=== PATIENT | male | born 1950 | race Caucasian/White ===

== ENCOUNTER 2016-08-04 09:49 | Emergency (ER) | payer BC, OTHER ==
[~2016-08-04] VITALS: Ht 182.9 cm; Wt 95.5 kg
[~2016-08-04 09:49] MED LIST: AMIO200T PO; AMIT25TA9 PO; APIX5TAB PO; CARD180C5 PO; CIAL5TAB PO; DICL75TA PO; FOLI1TAB4 PO; METH2.5T PO; REST0.05 EACH EYE; ROSU10 PO; ZOLP10TA3 PO
[2016-08-04 09:51] VITALS: BP 138/89; PULSE 110; RESP 20; TEMP 97.5; O2SAT 98
[2016-08-04] MEDS ORDERED: SODIUM CHLORID 0.9% 500 ML INJ 500 ML IV ONE (10:30)
[2016-08-04] MEDS ORDERED: SODIUM CHLORIDE 0.9% FLUSH 10 ML FLUSH IVF PRN (10:30)
[2016-08-04] MEDS ORDERED: METOCLOPRAMIDE HCL 10 MG/2 ML VIAL IV PUSH ONE (10:30)
[2016-08-04 10:37] VITALS: BP 139/78; PULSE 82; RESP 16; O2SAT 99
[2016-08-04 10:48] LABS: AUTOMATED NEUTROPHIL # 3.8 TH/MM3 (1.8-7.7); BASOPHIL % 0.4 % (0.0-2.0); EOSINOPHIL # 0.1 TH/MM3 (0-0.4); EOSINOPHIL % 1.9 % (0.0-4.0); HEMATOCRIT 42.6 % (39.0-51.0); HEMO FLAGS DIFF FINAL; LYMPH % 30.5 % (9.0-44.0); MEAN CELL VOLUME 86.8 FL (80.0-100.0); MEAN CORPUSCULAR HEMOGLOBIN 30.4 PG (27.0-34.0); MONO % 8.3 % (0.0-8.0); NEUT % 58.9 % (16.0-70.0); PLATELET COUNT 273 TH/MM3 (150-450); RED BLOOD COUNT 4.91 MIL/MM3 (4.50-5.90); RED CELL DISTRIBUTION WIDTH 13.8 % (11.6-17.2); WHITE BLOOD COUNT 6.4 TH/MM3 (4.0-11.0)
[2016-08-04 10:59] LABS: APTT (PATIENT) 33.2 SEC (24.3-30.1); PROTHROMBIN TIME - PATIENT 11.2 SEC (9.8-11.6)
--- NOTE | 2016-08-04 10:59 | RADRPT ---
EXAM DATE/TIME: 08/04/2016 10:41 [place] COMPARISON: No previous studies available for comparison. INDICATIONS : Shortness of breath and palpitations. MEDICAL HISTORY : A-fib. SURGICAL HISTORY : None. ENCOUNTER: Initial ACUITY: 1 day PAIN SCORE: 0/10 LOCATION: Bilateral chest FINDINGS: A single view of the chest demonstrates the lungs to be symmetrically aerated without evidence of mas s, infiltrate or effusion. The cardiomediastinal contours are unremarkable. Osseous structures are intact. CONCLUSION: No acute disease. Mick Stanton MD on August 04, 2016 at 10:57 Board Certified Radiologist. This report was verified electronically.
[2016-08-04 11:05] LABS: ANION GAP 7 MEQ/L (5-15); AST (GOT) 20 U/L (15-37); BICARBONATE 26.4 MEQ/L (21.0-32.0); BLOOD UREA NITROGEN 19 MG/DL (7-18); CHLORIDE 104 MEQ/L (98-107); GLOMERULAR FILTRATION RATE 56 ML/MIN (>89); MAGNESIUM 2.4 MG/DL (1.5-2.5); POTASSIUM 4.1 MEQ/L (3.5-5.1); SODIUM (NA) 137 MEQ/L (136-145)
[2016-08-04 11:10] LABS: ALKALINE PHOSPHATASE 65 U/L (45-117); ALT (GPT) 34 U/L (12-78); CREATINE KINASE 110 U/L (39-308); TOTAL BILIRUBIN ADULT 0.5 MG/DL (0.2-1.0)
[2016-08-04 11:22] LABS: CKMB 0.8 NG/ML (0.5-3.6)
[2016-08-04 13:22] VITALS: BP 127/71; PULSE 124; RESP 18; O2SAT 98
--- NOTE | 2016-08-04 13:47 | PD ---
HPI Chief Complaint: Cardiac Complaint Time Seen by Provider: 10:19 Travel History International Travel<30 days: No Contact w/Intl Traveler<30days: No Traveled to known affect area: No History of Present Illness HPI Patient is a 65-year-old male who presents to emergency with A. fib, htn, hyperlipidemia on cardizem and amiodarone and eliquis. Patient reports that he has history of A. fib, reports that he had at ablation by Dr. Perera in August and then had a repeat one in January. Patient reports that 10 days ago, he began to have rapid heart rate. Patient was restarted on his amiodarone 5-6 days ago and reports that he was placed on a Holter monitor by Dr. Perera. He reports that he was found to be in afib rvr. Dr. 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 Patient reports that he has been taking his medications as prescribed, reports that he has been intermittent episodes where his heart rate will be in the 140s. Patient currently with no shortness of breath or chest pain at this time. PFSH Past Medical History Hx Anticoagulant Therapy: Yes Arthritis: No Autoimmune Disease: No Heart Rhythm Problems: No Cancer: No Cardiovascular Problems: Yes High Cholesterol: No Chemotherapy: No Chest Pain: No Congestive Heart Failure: No Cerebrovascular Accident: No Diabetes: No Diminished Hearing: No Endocrine: No GERD: No Genitourinary: No Hiatal Hernia: No Hypertension: Yes Immune Disorder: No Kidney Stones: No Musculoskeletal: Yes (Polymyalgia rheumatica) Neurologic: No Psychiatric: No Reproductive: No Respiratory: No Migraines: No Radiation Therapy: No Renal Failure: No Seizures: No Thyroid Disease: No Ulcer: No Tetanus Vaccination: Unknown Influenza Vaccination: Yes Past Surgical History Thoracic Surgery: No Social History Alcohol Use: No Tobacco Use: No Substance Use: No Allergies-Medications (Allergen,Severity, Reaction): Coded Allergies: Doxazosin (Verified Adverse Reaction, Unknown, Arrhythmias, 02/29/16) Doxycycline (Verified Adverse Reaction, Unknown, PHOTOSENSITIVITY, ) Temazepam (Verified Adverse Reaction, Unknown, Arrhythmias, 02/29/16) Reported Meds & Prescriptions Reported Meds & Active Scripts Active Amiodarone (Amiodarone HCl) 200 Mg Tab 200 Mg PO DAILY Reported Zolpidem (Zolpidem Tartrate) 10 Mg Tab 10 Mg PO HS PRN Methotrexate 2.5 Mg Tab 2.5 Mg PO Q7D Folate (Folic Acid) 1 Mg Tab 1 Mg PO DAILY Eliquis (Apixaban) 5 Mg Tab 5 Mg PO BID Diclofenac Sodium DR (Diclofenac Sodium) 75 Mg Tabdr 75 Mg PO BID Crestor (Rosuvastatin Calcium) 10 Mg Tab 10 Mg PO DAILY Cialis (Tadalafil) 5 Mg Tab 5 Mg PO DAILY Do not exceed 1 dose/day. Cardizem CD 24 HR (Diltiazem CD 24 HR) 180 Mg Caper 180 Mg PO DAILY Amitriptyline (Amitriptyline HCl) 25 Mg Tab 25 Mg PO HS Review of Systems General / Constitutional: No: Fever Eyes: No: Visual changes HENT: No: Headaches Cardiovascular: Positive: Irregular Rhythm, No: Chest Pain or Discomfort Respiratory: No: Shortness of Breath Gastrointestinal: No: Abdominal Pain Genitourinary: No: Dysuria Musculoskeletal: No: Pain Skin: No Rash Neurologic: No: Weakness Psychiatric: No: Depression Endocrine: No: Polydipsia Hematologic/Lymphatic: No: Easy Bruising Physical Exam Narrative GENERAL: No acute distress, nontoxic SKIN: Focused skin assessment warm/dry. HEAD: Atraumatic. Normocephalic. EYES: Pupils equal and round. No scleral icterus. No injection or drainage. ENT: No nasal bleeding or discharge. Mucous membranes pink and moist. NECK: Trachea midline. No JVD. CARDIOVASCULAR: Irregular rate and rhythm. No murmur appreciated. RESPIRATORY: No accessory muscle use. Clear to auscultation. Breath sounds equal bilaterally. GASTROINTESTINAL: Abdomen soft, non-tender, nondistended. Hepatic and splenic margins not palpable. MUSCULOSKELETAL: No obvious deformities. No clubbing. No cyanosis. No edema. NEUROLOGICAL: Awake and alert. No obvious cranial nerve deficits. Motor grossly within normal limits. Normal speech. PSYCHIATRIC: Appropriate mood and affect; insight and judgment normal. Data Data Last Documented VS Vital Signs Date Time Temp Pulse Resp B/P Pulse Ox O2 Delivery O2 Flow Rate FiO2 08/04/16 13:22 124 18 127/71 98 Room Air 08/04/16 09:51 97.5 Orders Electrocardiogram (08/04/16 ) B-Type Natriuretic Peptide (08/04/16 10:27) Ckmb (Isoenzyme) Profile (08/04/16 10:27) Complete Blood Count With Diff (08/04/16 10:27) Comprehensive Metabolic Panel (08/04/16 10:27) Magnesium (Mg) (08/04/16 10:27) Prothrombin Time / Inr (Pt) (08/04/16 10:27) Act Partial Throm Time (Ptt) (08/04/16 10:27) Troponin I (08/04/16 10:27) Chest, Single Ap (08/04/16 10:27) Ecg Monitoring (08/04/16 10:27) Iv Access Insert/Monitor (08/04/16 10:27) Oximetry (08/04/16 10:27) Sodium Chloride 0.9% Flush (Ns Flush) (08/04/16 10:30) Sodium Chlorid 0.9% 500 Ml Inj (Ns 500 M (08/04/16 10:30) Metoclopramide Inj (Reglan Inj) (08/04/16 10:30) CKMB (08/04/16 10:20) CKMB% (08/04/16 10:20) Consult Cardiology (08/04/16 ) (Hub Use Only)Inp Phy Cons/Ref (08/04/16 ) Ckmb (Isoenzyme) Profile (08/04/16 15:16) Troponin I (08/04/16 15:16) Labs Laboratory Tests Test 08/04/16 08/04/16 10:20 15:20 White Blood Count 6.4 TH/MM3 Red Blood Count 4.91 MIL/MM3 Hemoglobin 14.9 GM/DL Hematocrit 42.6 % Mean Corpuscular Volume 86.8 FL Mean Corpuscular Hemoglobin 30.4 PG Mean Corpuscular Hemoglobin 35.0 % Concent Red Cell Distribution Width 13.8 % Platelet Count 273 TH/MM3 Mean Platelet Volume 7.6 FL Neutrophils (%) (Auto) 58.9 % Lymphocytes (%) (Auto) 30.5 % Monocytes (%) (Auto) 8.3 % Eosinophils (%) (Auto) 1.9 % Basophils (%) (Auto) 0.4 % Neutrophils # (Auto) 3.8 TH/MM3 Lymphocytes # (Auto) 2.0 TH/MM3 Monocytes # (Auto) 0.5 TH/MM3 Eosinophils # (Auto) 0.1 TH/MM3 Basophils # (Auto) 0.0 TH/MM3 CBC Comment DIFF FINAL Differential Comment Prothrombin Time 11.2 SEC Prothromb Time International 1.0 RATIO Ratio Activated Partial 33.2 SEC Thromboplast Time Sodium Level 137 MEQ/L Potassium Level 4.1 MEQ/L Chloride Level 104 MEQ/L Carbon Dioxide Level 26.4 MEQ/L Anion Gap 7 MEQ/L Blood Urea Nitrogen 19 MG/DL Creatinine 1.30 MG/DL Estimat Glomerular Filtration 56 ML/MIN Rate Random Glucose 97 MG/DL Calcium Level 8.6 MG/DL Magnesium Level 2.4 MG/DL Total Bilirubin 0.5 MG/DL Aspartate Amino Transf 20 U/L (AST/SGOT) Alanine Aminotransferase 34 U/L (ALT/SGPT) Alkaline Phosphatase 65 U/L Total Creatine Kinase 110 U/L 96 U/L Creatine Kinase MB 0.8 NG/ML Troponin I LESS THAN 0.02 LESS THAN 0.02 NG/ML NG/ML Total Protein 7.3 GM/DL Albumin 3.9 GM/DL MDM Medical Decision Making Medical Screen Exam Complete: Yes Emergency Medical Condition: Yes Interpretation(s) EKG at 1018: Afib at 83bpm, qt/qtc: 389/429 Vital Signs Date Time Temp Pulse Resp B/P Pulse Ox O2 Delivery O2 Flow Rate FiO2 08/04/16 13:22 124 18 127/71 98 Room Air 08/04/16 10:37 16 99 Room Air 08/04/16 10:37 82 16 139/78 99 Room Air 08/04/16 09:51 97.5 110 20 138/89 98 Room Air Differential Diagnosis afib, electrolyte abnormality, acs Narrative Course Patient is a 65 year old male who presents to ER with complaint of afib. Patient reports history of afib and has had afib ablation x 2 in the past. Patient reports that he has noticed that his heart rate ranges from 80-140's. Patient was told to come to the ER by Dr. Perera's RN if he was symptomatic. Patient reports that he has been symptomatic for the past 10 days, patient here for treatment for his A. fib. Patient currently is rate controlled with a heart rate of 83. Labs as well as x -ray chest ordered. Laboratory Tests Test 08/04/16 10:20 White Blood Count 6.4 TH/MM3 (4.0-11.0) Red Blood Count 4.91 MIL/MM3 (4.50-5.90) Hemoglobin 14.9 GM/DL (13.0-17.0) Hematocrit 42.6 % (39.0-51.0) Mean Corpuscular Volume 86.8 FL (80.0-100.0) Mean Corpuscular Hemoglobin 30.4 PG (27.0-34.0) Mean Corpuscular Hemoglobin 35.0 % Concent (32.0-36.0) Red Cell Distribution Width 13.8 % (11.6-17.2) Platelet Count 273 TH/MM3 (150-450) Mean Platelet Volume 7.6 FL (7.0-11.0) Neutrophils (%) (Auto) 58.9 % (16.0-70.0) Lymphocytes (%) (Auto) 30.5 % (9.0-44.0) Monocytes (%) (Auto) 8.3 % (0.0-8.0) Eosinophils (%) (Auto) 1.9 % (0.0-4.0) Basophils (%) (Auto) 0.4 % (0.0-2.0) Neutrophils # (Auto) 3.8 TH/MM3 (1.8-7.7) Lymphocytes # (Auto) 2.0 TH/MM3 (1.0-4.8) Monocytes # (Auto) 0.5 TH/MM3 (0-0.9) Eosinophils # (Auto) 0.1 TH/MM3 (0-0.4) Basophils # (Auto) 0.0 TH/MM3 (0-0.2) CBC Comment DIFF FINAL Differential Comment Prothrombin Time 11.2 SEC (9.8-11.6) Prothromb Time International 1.0 RATIO Ratio Activated Partial 33.2 SEC Thromboplast Time (24.3-30.1) Sodium Level 137 MEQ/L (136-145) Potassium Level 4.1 MEQ/L (3.5-5.1) Chloride Level 104 MEQ/L (98-107) Carbon Dioxide Level 26.4 MEQ/L (21.0-32.0) Anion Gap 7 MEQ/L (5-15) Blood Urea Nitrogen 19 MG/DL (7-18) Creatinine 1.30 MG/DL (0.60-1.30) Estimat Glomerular Filtration 56 ML/MIN (>89) Rate Random Glucose 97 MG/DL (74-106) Calcium Level 8.6 MG/DL (8.5-10.1) Magnesium Level 2.4 MG/DL (1.5-2.5) Total Bilirubin 0.5 MG/DL (0.2-1.0) Aspartate Amino Transf 20 U/L (15-37) (AST/SGOT) Alanine Aminotransferase 34 U/L (12-78) (ALT/SGPT) Alkaline Phosphatase 65 U/L (45-117) Total Creatine Kinase 110 U/L (39-308) Creatine Kinase MB 0.8 NG/ML (0.5-3.6) Troponin I LESS THAN 0.02 NG/ML (0.02-0.05) Total Protein 7.3 GM/DL (6.4-8.2) Albumin 3.9 GM/DL (3.4-5.0) Last Impressions Chest X-Ray 08/04/16 1027 Signed Impressions: Service Date/Time: Thursday, August 04, 2016 10:41 - CONCLUSION: No acute disease. Mick Stanton MD Call made to Dr. Perera who will see patient in consult Dr. Perera saw patient in consult. Patient was cardioverted under conscious sedation. Patient had successful cardioversion after procedure, patient will follow-up with Dr. Perera in the office, he will return to ER as needed Patient eating and drinking and back to baseline mental status. Patient will be discharged to home, he will follow up with Dr. Perera and will return to ER as needed Diagnosis Primary Impression: Atrial fibrillation Qualified Code: I48.1 - Persistent atrial fibrillation Patient Instructions: General Instructions, Moderate Sedation (ED) Additional Instructions: Please follow up with Dr. Perera in the office Return to ER as needed Please take your medications as prescribed Sabrina Lau DO August 04, 2016 13:47
--- NOTE | 2016-08-04 16:33 | MB ---
cc: NALLELY AVALOS M.D. DATE OF CONSULTATION: 08/04/2016. REASON FOR CONSULTATION: Electrophysiology consultation. HISTORY OF PRESENT ILLNESS: Mr. Ayoub is a 65-year-old gentleman with atrial fibrillation, previous ablation last in December of 2015, reported tachyarrhythmia this week. He was initiated on amiodarone. Heart rate increased. He decided to come to the emergency room. He is in atrial fibrillation and possible left atrial tachyarrhythmia. Heart rate in the 120s. He is on anticoagulation. I was consulted for further evaluation and management. The chart was reviewed. The patient was evaluated. ALLERGIES: 1. DOXAZOSIN. 2. DOXYCYCLINE. 3. TEMAZEPAM. SOCIAL HISTORY: Negative for smoking and drinking. FAMILY HISTORY: Noncontributory to his current medical condition. MEDICATIONS: He is on: 1. Amiodarone 200 milligrams a day. 2. Ambien 10 milligrams at bedtime. 3. Methotrexate 2.5 milligrams every seven days. 4. Folic acid. 5. Eliquis 5 milligrams twice a day. 6. Crestor 10 milligrams a day. 7. Cialis PRN. 8. Cardizem CD 240 milligrams a day. 9. Amitriptyline. REVIEW OF SYSTEMS: He refers no chest pain. No chest discomfort. He refers palpitations and shortness of breath. No fever. PHYSICAL EXAMINATION: GENERAL: Alert, fully oriented. VITAL SIGNS: His blood pressure is 127/71, pulse of 124, respiratory rate 18. LUNGS: Ventilated. CARDIOVASCULAR: S1 and S2. Irregular tachycardic. ABDOMEN: Abdomen soft, no mass. EXTREMITIES: No edema. EKGS: Electrocardiogram shows atrial fibrillation and atrial tachycardia, diffuse S-T changes. LABS: Hemoglobin 14.9, white blood cells 6.4. Potassium 4.1. Troponin less than 0.02. Creatinine 1.30. ASSESSMENT AND RECOMMENDATIONS: Mr. Ayoub has atrial fibrillation. He was always on anticoagulation. He is on Eliquis. He is very symptomatic. At this point, I will proceed with cardioversion and keep him on the same medications. If successful, he will be discharged home and to follow in two or three weeks in my office. The case was extensively discussed with him and his . The risks, the nature and the benefits of the procedure were clearly stated to him. The risks include pneumothorax, cardiac perforation, stroke and even . He understood and agreed to proceed. The procedure will be performed during hospitalization. MD KRISTIN Castro/AMAURI /4:21 PM /4:25 PM
[2016-08-04 16:34] LABS: CREATINE KINASE 96 U/L (39-308)
--- NOTE | 2016-08-04 16:43 | MA ---
cc: NALLELY PERERA M.D. DATE: 08/04/16 PROCEDURE Cardioversion. Mr. Ayoub is a 65-year-old gentleman with atrial fibrillation, previous ablation and atrial tachycardia, very symptomatic, on anticoagulation who will undergo cardioversion. The risks, the nature and the benefit of the procedure are clearly stated to him. Risks include cardiac arrest, need for a pacing support, need for endotracheal intubation and even . He understood and agreed to proceed. PROCEDURE IN DETAIL After written informed consent was obtained, the patient was evaluated by anesthesiologist. Once sedation was verified, the pads were placed. Subsequently a 300 sync biphasic joule was delivered that converted the patient into sinus rhythm. No incident reported. Patient fully recuperated from anesthesia. CONCLUSION Successful cardioversion, RECOMMENDATIONS The patient will be observed, can be discharged home later today. Follow up in 3-4 weeks in my office. Nallely Perera MD / /4:24 PM /4:34 PM
[2016-08-04 17:20] VITALS: BP 124/76
--- NOTE | 2016-08-04 21:47 | EKG ---
Date Performed: 08/04/2016 Time Performed: 16:14:34 PTAGE: 65 years EKG: Sinus rhythm NONSPECIFIC ST & T-WAVE ABNORMALITY BORDERLINE ECG PREVIOUS TRACING : 08/04/2016 10.18 DOCTOR: Pepe Perera Interpretating Date/Time 08/04/2016 21:45:16
--- NOTE | 2016-08-04 21:54 | EKG ---
Date Performed: 08/04/2016 Time Performed: 10:18:21 PTAGE: 65 years EKG: Sinus rhythm MODERATE ST DEPRESSION ABNORMAL ECG NO PREVIOUS TRACING DOCTOR: Pepe Perera Interpretating Date/Time 08/04/2016 21:51:19
== END 2016-08-04 17:21 | disposition home or self-care (01) ==
LOC: NEPE 09:49
DX: I48.1 Persistent atrial fibrillation (principal); Z79.01 Long term (current) use of anticoagulants; E78.00 Pure hypercholesterolemia, unspecified
CPT/HCPCS: 71010; 80053; 82550; 82552; 83735; 84484; 85025; 85610; 85730; 92960; 93005; 96360; 99156; 99285; J7040

== ENCOUNTER 2016-11-27 11:55 | Day surgery (SDC) | payer BC ==
[~2016-11-27 11:55] MED LIST changes: -REST0.05 EACH EYE
[2016-11-27] MEDS ORDERED: PROPOFOL 200 MG/20 ML AMP IV ONE (12:28)
[2016-11-27] MEDS ORDERED: POVIDONE IODINE 5% (ANTISEPSIS KIT) 4 APPLICATIONS EACH NARE PRN (13:00)
[2016-11-27] MEDS ORDERED: INSULIN HUMAN REGULAR 1,000 UNITS/10 ML VIAL SQ PRN (13:00)
[2016-11-27] MEDS ORDERED: SODIUM CHLORID 0.9% 500 ML IV PRN (13:00)
[2016-11-27] MEDS ORDERED: LACTATED RINGER'S 1000 ML IV PRN (13:00)
[2016-11-27] MEDS ORDERED: CHLORHEXIDINE GLUCONATE 2 % 1 PACK (2 CLOTHS) TOPICAL PRN (13:00)
--- NOTE | 2016-11-28 08:36 | MA ---
cc: ANITA SERRATO MD, HANSCY M.D. DATE: 11/28/2016 PROCEDURE Cardioversion. INDICATION Mr. Ayoub is a 65-year-old gentleman with atrial fibrillation and atrial tachycardia, who is to undergo cardioversion. The risks, the nature and the benefit of the procedure were clearly stated to him. The risks include cardiac arrest, need for endotracheal intubation, stroke and even . He understood and agreed to proceed. DETAILS OF PROCEDURE After written informed consent was obtained, the patient was kept in the DOCU where he was evaluated by the anesthesiologist. Anterolateral pads were placed. Once sedation was verified, 200 synchronized biphasic joules were delivered and converted the patient into sinus rhythm. The patient fully recuperated from anesthesia. At that point procedure was complete. The patient is going to be discharged home. No incident report. CONCLUSION Successful cardioversion. COMMENT/RECOMMENDATION The patient is going to be discharged home. Cardizem discontinued. He will be follow as an outpatient. Pepe Perrea MD HS/BT /8:04 AM /8:25 AM
--- NOTE | 2016-11-28 16:50 | EKG ---
Date Performed: 11/27/2016 Time Performed: 12:58:52 PTAGE: 65 years EKG: Sinus tachycardia. Compared to PREVIOUS TRACING , the patient is now tachycardic Normal ECG except for rate PREVIOUS TRA CIN08/04/2016 16.14 DOCTOR: Bibi Wisdom Interpretating Date/Time 11/28/2016 16:49:45
== END 2016-11-27 14:00 | disposition home or self-care (01) ==
LOC: HDOC 11:55 → HDIC 11:56 → HDOC 14:00
PROVIDERS: ATTEND Internal Medicine Interventional Cardiology
DX: I48.91 Unspecified atrial fibrillation (principal); I10 Essential (primary) hypertension; I25.2 Old myocardial infarction; R00.2 Palpitations; M35.3 Polymyalgia rheumatica; Z79.01 Long term (current) use of anticoagulants; Z79.899 Other long term (current) drug therapy
CPT/HCPCS: 92960; 93005

== ENCOUNTER 2016-12-24 14:53 | Day surgery (SDC) | payer BC ==
[~2016-12-24] VITALS: Ht 182.9 cm; Wt 101.0 kg
[~2016-12-24 14:53] MED LIST changes: +DEXAMETHASONE SOD PHOS 4 MG/ML VIAL IV ONE; -FOLI1TAB4 PO; +GLYCOPYRROLATE 1 MG/5 ML SYRINGE IV PUSH ONE; +LIDOCAINE HCL 1% PF 5 ML AMPULE OTHER ONE; +NEOSTIGMINE 3 MG/3 ML SYR IV ONE; +ONDANSETRON HCL 4 MG/2 ML VIAL IV PUSH ONE; +PHENYLEPH/NS 1000 MCG/10 ML SYR IV ONE; +PROPOFOL 200 MG/20 ML AMP IV ONE; +ROCURONIUM INJ 50 MG/5 ML SYRINGE IV PUSH ONE; +ePHEDrine/NS 25 MG/5 ML SYR IV ONE
[2016-12-24] MEDS ORDERED: SODIUM CHLORID 0.9% 500 ML IV PRN (15:30)
[2016-12-24] MEDS ORDERED: LACTATED RINGER'S 1000 ML IV PRN (15:30)
[2016-12-24] MEDS ORDERED: METOPROLOL TARTRATE 25 MG TAB PO PRN (15:30)
[2016-12-24] MEDS ORDERED: INSULIN HUMAN REGULAR 1,000 UNITS/10 ML VIAL SQ PRN (15:30)
[2016-12-24] MEDS ORDERED: POVIDONE IODINE 5% (ANTISEPSIS KIT) 4 APPLICATIONS EACH NARE PRN (15:30)
[2016-12-24] MEDS ORDERED: SODIUM CHLORID 0.9% 500 ML INJ 500 ML IV SCH (15:30)
[2016-12-24] MEDS ORDERED: LORazepam 1 MG TAB SL SCH (15:30)
[2016-12-24] MEDS ORDERED: CHLORHEXIDINE GLUCONATE 2 % 1 PACK (2 CLOTHS) TOPICAL PRN (15:30)
[2016-12-24 15:31] VITALS: BP 148/96; PULSE 102; RESP 17; TEMP 97.7
[2016-12-24] MEDS ORDERED: NEOSTIGMINE 3 MG/3 ML SYR IV ONE (15:36)
[2016-12-24] MEDS ORDERED: ONDANSETRON HCL 4 MG/2 ML VIAL IV PUSH ONE ×2 (15:36)
[2016-12-24] MEDS ORDERED: ePHEDrine/NS 25 MG/5 ML SYR IV ONE (15:36)
[2016-12-24] MEDS ORDERED: PHENYLEPH/NS 1000 MCG/10 ML SYR IV ONE ×2 (15:36)
[2016-12-24] MEDS ORDERED: GLYCOPYRROLATE 1 MG/5 ML SYRINGE IV PUSH ONE (15:36)
[2016-12-24] MEDS ORDERED: LIDOCAINE HCL 1% PF 5 ML AMPULE OTHER ONE (15:36)
[2016-12-24] MEDS ORDERED: DEXAMETHASONE SOD PHOS 4 MG/ML VIAL IV ONE (15:36)
[2016-12-24] MEDS ORDERED: PROPOFOL 200 MG/20 ML AMP IV ONE (15:36)
[2016-12-24] MEDS ORDERED: ROCURONIUM INJ 50 MG/5 ML SYRINGE IV PUSH ONE (15:36)
[2016-12-24 15:39] LABS: BASOPHIL % 0.7 % (0.0-2.0); EOSINOPHIL # 0.2 TH/MM3 (0-0.4); EOSINOPHIL % 2.5 % (0.0-4.0); HEMATOCRIT 43.7 % (39.0-51.0); HEMO FLAGS DIFF FINAL; LYMPH % 28.1 % (9.0-44.0); LYMPHOCYTE # 1.9 TH/MM3 (1.0-4.8); MEAN CELL VOLUME 88.3 FL (80.0-100.0); MEAN CORPUSCULAR HEMOGLOBIN 29.8 PG (27.0-34.0); MEAN CORPUSCULAR HGB CONC 33.7 % (32.0-36.0); NEUT % 60.7 % (16.0-70.0); PLATELET COUNT 250 TH/MM3 (150-450); RED BLOOD COUNT 4.95 MIL/MM3 (4.50-5.90); RED CELL DISTRIBUTION WIDTH 14.1 % (11.6-17.2); WHITE BLOOD COUNT 6.6 TH/MM3 (4.0-11.0)
[2016-12-24 15:49] LABS: APTT (PATIENT) 29.9 SEC (24.3-30.1); PROTHROMBIN TIME - PATIENT 10.5 SEC (9.8-11.6)
[2016-12-24 16:00] LABS: BICARBONATE 26.4 MEQ/L (21.0-32.0); POTASSIUM 3.8 MEQ/L (3.5-5.1)
[2016-12-24] MEDS ORDERED: ISOPROTERENOL HCL 1 MG/5 ML AMP ONE (17:15)
[2016-12-24] MEDS ORDERED: FUROSEMIDE 40 MG/4 ML VIAL ONE (17:15)
[2016-12-24] MEDS ORDERED: HEPARIN-D5W 25,000 U/250 ML 250 ML ONE (17:15)
[2016-12-24] MEDS ORDERED: HEPARIN SODIUM - IV 10,000 UNITS/10 ML VIAL ONE ×2 (17:16→18:44)
[2016-12-24] MEDS ORDERED: SODIUM CHLOR 0.9% 250 ML INJ 250 ML ONE (17:16)
[2016-12-24] MEDS ORDERED: PROTAMINE SULFATE 50 MG/5 ML VIAL ONE (17:16)
[2016-12-24] MEDS ORDERED: HEPARIN-NS/PF INJ 2,000 ML ONE (17:32)
[2016-12-24] MEDS ORDERED: LEVOFLOXACIN 500 MG PREMIX INJ 100 ML IV ONE (17:32)
[2016-12-24] MEDS ORDERED: DO NOT ADM ANY ANTICOAGULANT DRUGS PRN (20:48)
[2016-12-24] MEDS ORDERED: ATROPINE SULFATE 1 MG/ML VIAL IV PUSH PRN (21:30)
[2016-12-24] MEDS ORDERED: BACITRACIN OINT 0.9 GM PKT TOP ONE (21:30)
[2016-12-24] MEDS ORDERED: METOCLOPRAMIDE HCL 10 MG/2 ML VIAL IV PUSH PRN (21:30)
[2016-12-24] MEDS ORDERED: ONDANSETRON HCL 4 MG/2 ML VIAL IV PUSH PRN (21:30)
[2016-12-24] MEDS ORDERED: SODIUM CHLOR 0.9% 250 ML INJ 250 ML IV PRN (21:30)
[2016-12-24] MEDS ORDERED: oxyCODONE/ACETAMINOPHEN 5 MG/325 MG TAB PO PRN ×2 (21:30)
[2016-12-24] MEDS ORDERED: ZOLPIDEM TARTRATE 10 MG TAB PO PRN (21:30)
[2016-12-24] MEDS ORDERED: LIDOCAINE HCL 1% 50 ML VIAL INFIL PRN (21:30)
[2016-12-24] MEDS ORDERED: LORazepam 2 MG/ML VIAL IV PUSH PRN (21:30)
[2016-12-24] MEDS ORDERED: METHOTREXATE 2.5 MG TAB PO SCH (22:00)
[2016-12-24 22:16] VITALS: BP 114/82; PULSE 81; RESP 16; TEMP 98; O2SAT 95
[2016-12-24 23:00] VITALS: BP 133/81; PULSE 80; PULSE 85; RESP 16; TEMP 98.1; O2SAT 96
[2016-12-25] VITALS (13 sets, daily range): BP systolic 114–130; BP diastolic 75–80; PULSE 85–99; RESP 16–20; TEMP 97.6–97.9; O2SAT 96–97
[2016-12-25 06:44] LABS: APTT (PATIENT) 27.5 SEC (24.3-30.1); PROTHROMBIN TIME - PATIENT 11.5 SEC (9.8-11.6)
[2016-12-25] MEDS ORDERED: DICLOFENAC SODIUM 75 MG DELAYED RELEASE TAB PO SCH (09:00)
[2016-12-25] MEDS ORDERED: APIXABAN 5 MG TABLET PO SCH (09:00)
[2016-12-25] MEDS ORDERED: ATORVASTATIN 20 MG TAB PO SCH (09:00)
[2016-12-25] MEDS ORDERED: AMIODARONE 200 MG TAB PO SCH (09:00)
--- NOTE | 2016-12-25 10:56 | PD.CARD ---
Atrial Fibrillation Ablation PROCEDURE DATE: Dec 25, 2016 PROCEDURES PERFORMED: 1. Electrophysiology study on Isuprel infusion 2. CS cannulation 3. 3-D mapping 4. Transseptal approach 5. Right and left heart catheterization 6. Intracardiac echo 7. Radiofrequency ablation of atrial fibrillation 8. Pulmonary vein isolation 9. Posterior wall ablation 10. Mitral valve isolation 11. Mitral line creation 12. Left atrial tachycardia ablation 13. Roof line creation 14. Floor line creation 15. Anterior and posterior ablation 16. Cardioversion INDICATIONS FOR THE PROCEDURE Mr. Ayoub is a 66-year-old male with atrial fibrillation, tachyarrhythmia, previous ablation, referred for electrophysiology study and ablation. The patient is symptomatic and on anticoagulation. The risks, the nature and the benefits of the procedure were clearly stated to him. The risks include pneumothorax, cardiac perforation, stroke, need for open heart surgery and even . The patient understood and agreed to proceed. DESCRIPTION OF THE PROCEDURE IN DETAIL As written informed consent was obtained prior to esophageal echocardiogram, the patient was kept on the table where he was prepped and draped in the usual sterile fashion. Conscious sedation was initiated and maintained throughout the procedure by the anesthesiologist. Once sedation was verified, the right and left inguinal areas were anesthetized with 2% Xylocaine. Using modified Seldinger technique, the left femoral vein was cannulated on three occasions, three guidewires were advanced. Over the wire a 6, 7 and a 10-[place] Hemaquet were advanced. Then the left femoral artery was cannulated on one occasion, one guidewire was advanced. Over the wire a 4-[place] Hemaquet was advanced. Then the right femoral vein was cannulated on one occasion, one guidewire was advanced. Over the wire a 8-[place] Hemaquet was advanced. Then under fluoroscopic guidance through the 6 and 7-[place] Hemaquet, two 5-[place] Missy curved quadripolar electrophysiology catheters were advanced and placed around the His as well as coronary sinus. Basic interval was measured. The patient was in atrial fibrillation. Through the 10-[place] Hemaquet, a Cordis Weston AcuNav intracardiac echo catheter was advanced and placed at the right atrium. Multiple view was obtained. There is no pericardial effusion, pulmonary vein was seen, atrial septal was visualized. Then the 8-[place] Hemaquet in the right femoral vein was exchanged for Agilis transseptal sheath that was placed all the way to the superior vena cava. Through the sheath a Gigi needle was advanced, then the sheath, the dilator and the needle were progressed until foci engaged. Once engaged, the needle was advanced. RF was delivered for 2 seconds. I was able to cross into the left atrium. Once the needle crossed, the dilator was advanced. Once the dilator crossed, the sheath was advanced. Once the sheath crossed, the dilator and the needle were removed. At this point I did flood the system and fluid movement was seen in the left atrium the indicates the sheath is in good position. The patient already received 10,000 units of heparin. The goal is to keep an ACT around 350 during ablation. Then through the sheath a [place]. [place] 20 pulse circumferential catheter was advanced. Using Moneyspyder endocardial solution mapping system, a two-dimensional configuration of the left atrium was obtained. Points were taken at the left superior and inferior veins, right superior and inferior veins, mitral valve, and appendages. Then through the sheath a [place]. [place] TactiCath 65cm 3.5mm irrigated tipped mapping and radiofrequency ablation catheter was advanced. Esophageal probe was placed temperature monitoring during ablation. When it increased to 0.5 degrees Celsius above baseline, I moved to a different area of the atrium. First I did isolate the left superior vein. There was some activities in the vein. Posterior floor was ablated. Then anterior roof line was ablated. That was the area of early activation. A anterior floor line was created, a mitral line was isolated, then the mitral valve was isolated. While ablating at the lateral wall , patient tachyarrhythmia CL prolonged up to 403 ms from 270 ms. Converted into sinus rhythm then break into atrial fibrillation. I did create a line from the floor to the roof area, passing by the left atrial appendage. Then the right inferior vein isolated. I did remap the atrium. There is no significant signal in the atrium. I did proceed with Isolation of the coronary sinus. The transeptal was previously decannulated. Then transeptal was recannulated. after mapping, I decided to proceed with cardioversion. A 200 sync biphasic joule was delivered that converted the patient into sinus rhythm. At that point I did advance the circumferential catheter again into the vein. There was no signal into the vein, pacing from the vein showed no conduction to the atrium. Isuprel infusion was initiated at 20 mcg for over 10 minutes. No tachyarrhythmia was induced, post Isuprel no tachyarrhythmia was induced. At that point the procedure was complete. All catheters were removed , atrial septal sheath was exchanged for 9-[place] Hemaquet, intracardiac echo showed no pericardial effusion. There is still good flow in the pulmonary vein. The patient is going to be transferred to the recovery room. No incident report. The patient tolerated the procedure. Blood loss was minimal. FINDINGS 1. Electrocardiogram: At baseline the patient was in atrial fibrillation left atrial tach, post procedure the patient was in sinus rhythm. 2. Basic interval: Base cycle length was around 520. Post ablation she was around 970 milliseconds. 3. Tachyarrhythmia: Atrial fibrillation was mapped and ablated. Atrial tachycardia was ablated. The ablation was successful. CONCLUSION Successful electrophysiology study, mapping, radiofrequency ablation of atrial fibrillation, left atrial tachycardia, pulmonary vein isolation, posterior ablation, mitral valve isolation, mitral line creation, roof line creation, floor line creation, left atrial tachycardia, and cardioversion. COMMENTS AND RECOMMENDATIONS The patient is going to be transferred to the telemetry unit. Will be observed and when stable can be discharged home. Pepe Perera MD Dec 25, 2016 10:56
--- NOTE | 2016-12-25 11:01 | HHI.PR ---
Subjective Remarks Feeling better Objective Vital Signs Date Time Temp Pulse Resp B/P (MAP) Pulse Ox O2 Delivery O2 Flow Rate FiO2 12/25/16 10:00 90 12/25/16 09:04 88 12/25/16 08:00 86 12/25/16 07:33 97.6 86 20 130/80 (97) 97 12/25/16 07:00 86 12/25/16 06:00 91 12/25/16 05:00 89 12/25/16 04:00 87 12/25/16 03:00 97.9 94 16 114/75 (88) 96 12/25/16 03:00 91 12/25/16 02:00 99 12/25/16 01:00 87 12/25/16 00:00 85 12/24/16 23:00 85 12/24/16 23:00 98.1 80 16 133/81 (98) 96 12/24/16 22:16 98.0 81 16 114/82 (93) 95 12/24/16 21:45 97.5 80 16 112/72 (85) 97 12/24/16 21:30 78 16 109/72 (84) 96 12/24/16 21:15 79 16 113/73 (86) 97 Nasal Cannula 2 12/24/16 21:00 78 16 112/72 (85) 98 Nasal Cannula 2 12/24/16 20:50 97.7 77 16 122/77 (92) 99 Nasal Cannula 2 12/24/16 15:31 97.7 102 17 148/96 (113) I/O 12/24/16 12/24/16 12/24/16 12/25/16 12/25/16 12/25/16 06:59 14:59 22:59 06:59 14:59 22:59 Intake Total 0 ml 720 ml Output Total 1400 ml 1000 ml Balance -1400 ml -280 ml Intake Oral 0 ml 720 ml Output Urine Total 1400 ml 1000 ml Result Diagram: 12/24/16 1515 12/24/16 1515 Imaging lert, fully oriented, in bed Lungs: ventilated Heart: s1, S2 regular, no gallop Abdomen: soft, no mass Ext: no edema Current Medications Medications (Trade) Dose Ordered Sig/Tacos Route Start Time Stop Time Status Last Admin Lactated Ringer's 1,000 ml @ 30 mls/hr Q24H PRN IV 12/24/16 15:30 12/27/16 15:29 Sodium Chloride 500 ml @ 30 mls/hr [id number] PRN IV 12/24/16 15:30 12/27/16 15:29 (Lopressor) 25 mg COOK BOAT PRN PO 12/24/16 15:30 12/27/16 15:29 (Betadine 5% Antisepsis Kit) 1 applic COOK BOAT PRN EACH NARE 12/24/16 15:30 12/27/16 15:29 (Chlorhexidine 2% Cloth) 3 pack COOK BOAT PRN TOPICAL 12/24/16 15:30 12/27/16 15:29 (NovoLIN R INJ) See Protocol Table ... COOK BOAT PRN SQ 12/24/16 15:30 12/27/16 15:29 Sodium Chloride 500 ml @ 30 mls/hr [id number] IV 12/24/16 15:30 (Ativan) 1 mg COOK BOAT SL 12/24/16 15:30 12/27/16 15:29 (Percocet 5-325 Mg) 1 tab Q4H PRN PO 12/24/16 21:30 (Percocet 5-325 Mg) 2 tab Q4H PRN PO 12/24/16 21:30 (Ativan Inj) 0.5 mg UNSCH PRN IV PUSH 12/24/16 21:30 12/25/16 21:29 (Atropine Inj) 0.5 mg UNSCH PRN IV PUSH 12/24/16 21:30 Sodium Chloride 250 ml @ 500 mls/hr ONCE PRN IV 12/24/16 21:30 12/25/16 21:29 (Reglan Inj) 10 mg Q4H PRN IV PUSH 12/24/16 21:30 (Zofran Inj) 4 mg Q4H PRN IV PUSH 12/24/16 21:30 (Xylocaine 1% Inj (50 ml)) 10 ml UNSCH PRN INFIL 12/24/16 21:30 12/25/16 21:29 (Cordarone) 200 mg DAILY PO 12/25/16 09:00 12/25/16 08:51 (Elavil) 25 mg HS PO 12/25/16 21:00 (Eliquis) 5 mg BID PO 12/25/16 09:00 12/25/16 08:52 (Voltarezora Jones) 75 mg BID PO 12/25/16 09:00 (Rheumatrex) 2.5 mg Q7D PO 12/24/16 22:00 (Ambien) 10 mg HS PRN PO 12/24/16 21:30 (Lipitor) 20 mg DAILY PO 12/25/16 09:00 Miscellaneous Information ALL NURSING DEPARTME... UNSCH PRN .XX 12/24/16 20:48 12/25/16 20:47 Assessment and Plan Problem List: (1) Palpitations ICD Codes: R00.2 - Palpitations Status: Acute Plan: No new episode reported (2) Atrial fibrillation ICD Codes: I48.91 - Unspecified atrial fibrillation Status: Acute Plan: SP ablation. On anticoagulation Doing better Cardizem DC will be DH. Follow up as scheduled Pepe Perera MD Dec 25, 2016 11:01
--- NOTE | 2016-12-25 11:50 | EKG ---
Date Performed: 12/24/2016 Time Performed: 15:57:28 PTAGE: 66 years EKG: Supraventricular tachycardia, appears suggestive of flutter or atrial tachycardia Abnormal ECG PREVIOUS TRACING : 11/27/2016 12.58 Prior tracing is misread and is also suspected to be 2:1 at rial tachycardia DOCTOR: Albino Hidalgo Interpretating Date/Time 12/25/2016 11:49:00
--- NOTE | 2016-12-25 11:51 | EKG ---
Date Performed: 12/24/2016 Time Performed: 21:25:55 PTAGE: 66 years EKG: Sinus rhythm NONSPECIFIC T-WAVE ABNORMALITY BORDERLINE ECG PREVIOUS TRACING : 12/24/2016 15.57 Sinus rhythm replaces supraventricular tachycardia compared to the prior tracing. DOCTOR: Albino Hidalgo Interpretating Date/Time 12/25/2016 11:49:21
[2016-12-25] MEDS ORDERED: AMITRIPTYLINE HCL 25 MG TAB PO SCH (21:00)
--- NOTE | 2016-12-26 15:47 | EKG ---
Date Performed: 12/25/2016 Time Performed: 05:47:40 PTAGE: 66 years EKG: Sinus rhythm Normal ECG PREVIOUS TRACING : 12/24/2016 21.25 Compared to prior tracing no significant change DOCTOR: Pan Santiago Interpretating Date/Time 12/26/2016 15:45:13
== END 2016-12-25 11:49 | disposition home or self-care (01) ==
LOC: HDOC 14:53 → HDIC 14:54 → HCIN 21:56 → HDOC 12-25 11:49
PROVIDERS: ATTEND Internal Medicine Interventional Cardiology
DX: I48.91 Unspecified atrial fibrillation (principal); I47.1 Supraventricular tachycardia; I10 Essential (primary) hypertension; M35.3 Polymyalgia rheumatica
CPT/HCPCS: 80048; 85002; 85025; 85610; 85730; 86850; 86900; 86901; 92960; 93005; 93312; 93320; 93325; 93613; 93623; 93656; 93662; C1730; C1731; C1732; C1759; C1766; C2630; J1100; J1644; J1940; J1956; J2370; J2405; J2710; J2720; J3010; J7050

== ENCOUNTER 2016-12-29 18:23 | Inpatient (IN) | payer BC ==
[~2016-12-29] VITALS: Ht 182.9 cm; Wt 97.6 kg
[~2016-12-29 18:23] MED LIST changes: -CARD180C5 PO; -DEXAMETHASONE SOD PHOS 4 MG/ML VIAL IV ONE; -GLYCOPYRROLATE 1 MG/5 ML SYRINGE IV PUSH ONE; -LIDOCAINE HCL 1% PF 5 ML AMPULE OTHER ONE; -NEOSTIGMINE 3 MG/3 ML SYR IV ONE; -ONDANSETRON HCL 4 MG/2 ML VIAL IV PUSH ONE; -PHENYLEPH/NS 1000 MCG/10 ML SYR IV ONE; -PROPOFOL 200 MG/20 ML AMP IV ONE; -ROCURONIUM INJ 50 MG/5 ML SYRINGE IV PUSH ONE; -ePHEDrine/NS 25 MG/5 ML SYR IV ONE
[2016-12-29 18:32] VITALS: BP 159/91; PULSE 133; RESP 18; TEMP 98.5; O2SAT 95
[2016-12-29 18:41] VITALS: BP 159/94; PULSE 134; RESP 18; O2SAT 95
[2016-12-29] MEDS ORDERED: SODIUM CHLORIDE 0.9% FLUSH 10 ML FLUSH IVF PRN (18:45)
[2016-12-29] MEDS ORDERED: DILTIAZEM HCL 25 MG/5 ML VIAL IV ONE (18:45)
[2016-12-29] MEDS ORDERED: DILTIAZEM INJ 125 MG in SODIUM CHLORIDE 0.9% INJ 100 ML IV PRN (18:45)
--- NOTE | 2016-12-29 18:47 | PD ---
Physical Exam Date Seen by Provider: Dec 29, 2016 Narrative This patient presents with AF with RVR. He is status post 3 ablations for same. Most recent ablation was 5 days ago. Data Data Last Documented VS Vital Signs Date Time Temp Pulse Resp B/P (MAP) Pulse Ox O2 Delivery O2 Flow Rate FiO2 12/29/16 18:41 134 18 159/94 (115) 95 Room Air 12/29/16 18:32 98.5 Orders Orders Electrocardiogram (12/29/16 18:34) Basic Metabolic Panel (Bmp) (12/29/16 18:34) Ckmb (Isoenzyme) Profile (12/29/16 18:34) Complete Blood Count With Diff (12/29/16 18:34) Magnesium (Mg) (12/29/16 18:34) Prothrombin Time / Inr (Pt) (12/29/16 18:34) Act Partial Throm Time (Ptt) (12/29/16 18:34) Troponin I (12/29/16 18:34) Chest, Single Ap (12/29/16 18:34) Ecg Monitoring (12/29/16 18:34) Bilateral Bp Monitoring (12/29/16 18:34) Iv Access Insert/Monitor (12/29/16 18:34) Oximetry (12/29/16 18:34) Oxygen Administration (12/29/16 18:34) Sodium Chloride 0.9% Flush (Ns Flush) (12/29/16 18:45) Vital Signs (Adult) Q15MX4,Q4H (12/29/16 18:34) Broacher / Telemetry JUANA.Q8H (12/29/16 18:34) Cardiac Rhythm JUANA.Q8H (12/29/16 18:34) Notify Dr: Other (12/29/16 18:34) Diltiazem Inj (Cardizem Inj) (12/29/16 18:45) Diltiazem Inj (Cardizem Inj) (12/29/16 18:45) MDM Supervised Visit with BRET: Yes Narrative Course I, Dr. Aguirre, have reviewed the advance practice practitioner's documentation and am in agreement, met with the patient face to face, made the diagnosis, and the medical decision making was done by me. *My assessment and Findings: Patient is lucid. Color is good. He does not appear to be in any acute distress. See [facility] [place] note for lab and radiology results, final diagnosis and disposition Diagnosis Primary Impression: Atrial fibrillation Qualified Codes: I48.0 - Paroxysmal atrial fibrillation Fiona Aguirre MD Dec 29, 2016 18:47
[2016-12-29 18:54] LABS: AUTOMATED NEUTROPHIL # 6.3 TH/MM3 (1.8-7.7); BASOPHIL % 0.5 % (0.0-2.0); EOSINOPHIL # 0.3 TH/MM3 (0-0.4); EOSINOPHIL % 2.7 % (0.0-4.0); HEMATOCRIT 43.4 % (39.0-51.0); HEMO FLAGS DIFF FINAL; LYMPH % 22.2 % (9.0-44.0); LYMPHOCYTE # 2.1 TH/MM3 (1.0-4.8); MEAN CELL VOLUME 87.9 FL (80.0-100.0); MEAN CORPUSCULAR HEMOGLOBIN 30.4 PG (27.0-34.0); MEAN CORPUSCULAR HGB CONC 34.6 % (32.0-36.0); MONO % 8.6 % (0.0-8.0); PLATELET COUNT 264 TH/MM3 (150-450); RED BLOOD COUNT 4.94 MIL/MM3 (4.50-5.90); RED CELL DISTRIBUTION WIDTH 14.1 % (11.6-17.2); WHITE BLOOD COUNT 9.5 TH/MM3 (4.0-11.0)
[2016-12-29 19:04] LABS: APTT (PATIENT) 29.1 SEC (24.3-30.1); PROTHROMBIN TIME - PATIENT 10.6 SEC (9.8-11.6)
--- NOTE | 2016-12-29 19:09 | PD ---
HPI Chief Complaint: Cardiac Complaint Time Seen by Provider: 18:37 Travel History International Travel<30 days: No Contact w/Intl Traveler<30days: No Traveled to known affect area: No History of Present Illness HPI 66-year-old male that presents to the ED for evaluation of atrial fibrillation. Patient comes here by ambulance for evaluation of this. Patient has a chronic history of fibrillation having had 3 different ablations in the past by Dr. Murphy. Last one being actually is Saturday. Patient was discontinued from his Cardizem. Patient was continuing amiodarone. Patient noted today while watching a football game he started feeling weak. He does states having some shortness of breath, no chest pain. No palpitations. He states that this feels similar to his previous episodes. He called the ambulance and they found him to be in a heart rate 150. He himself to at 240 dose of Cardizem with some success but not enough for him to bring him down all the way. Ambulance came 20 mg IV and they brought down his heart rate to 130 but came back up. He denies any chest pain. No fevers chills or sweats. Other medical issues. He does take Eliquis daily. No abdominal pain. No nausea or vomiting. PFSH Past Medical History Hx Anticoagulant Therapy: Yes (ELIQUIS) Arthritis: No Atrial Fibrillation: Yes Autoimmune Disease: No Heart Rhythm Problems: No Cancer: No Cardiovascular Problems: Yes ([place] 1999) High Cholesterol: No Chemotherapy: No Chest Pain: No Congestive Heart Failure: No Cerebrovascular Accident: No Diabetes: No Diminished Hearing: No Endocrine: No Gastrointestinal Disorders: No GERD: No Glaucoma: No Genitourinary: No Hepatitis: No Hiatal Hernia: No Hypertension: Yes Immune Disorder: No Kidney Stones: No Musculoskeletal: Yes (Polymyalgia rheumatica) Neurologic: No Psychiatric: No Reproductive: No Respiratory: No Integumentary: No Migraines: No Radiation Therapy: No Renal Failure: No Seizures: No Thyroid Disease: No Ulcer: No Tetanus Vaccination: Unknown Influenza Vaccination: Yes ?: Not Past Surgical History Cardiac Surgery: Yes (3 ABLATIONS ) Thoracic Surgery: No Other Surgery: Yes Social History Alcohol Use: Yes (BEER TWICE A MONTH ) Tobacco Use: No Substance Use: No Allergies-Medications (Allergen,Severity, Reaction): Coded Allergies: doxazosin (Unverified Adverse Reaction, Unknown, Arrhythmias, 11/13/16) doxycycline (Unverified Adverse Reaction, Unknown, PHOTOSENSITIVITY, ) temazepam (Unverified Adverse Reaction, Unknown, Arrhythmias, 11/13/16) Reported Meds & Prescriptions Reported Meds & Active Scripts Active Amiodarone (Amiodarone HCl) 200 Mg Tab 200 Mg PO DAILY Reported Zolpidem (Zolpidem Tartrate) 10 Mg Tab 10 Mg PO HS PRN Methotrexate 2.5 Mg Tab 2.5 Mg PO Q7D Eliquis (Apixaban) 5 Mg Tab 5 Mg PO BID Diclofenac Sodium DR (Diclofenac Sodium) 75 Mg Tabdr 75 Mg PO BID Crestor (Rosuvastatin Calcium) 10 Mg Tab 10 Mg PO DAILY Cialis (Tadalafil) 5 Mg Tab 5 Mg PO DAILY Do not exceed 1 dose/day. Amitriptyline (Amitriptyline HCl) 25 Mg Tab 25 Mg PO HS Review of Systems Except as stated in HPI: all other systems reviewed are Neg Physical Exam Narrative GENERAL: SKIN: Warm and dry. HEAD: Atraumatic. Normocephalic. EYES: Pupils equal and round. No scleral icterus. No injection or drainage. ENT: No nasal bleeding or discharge. Mucous membranes pink and moist. No murmurs, S3, S4. NECK: Trachea midline. No JVD. CARDIOVASCULAR: Irregular rate and rhythm. No obvious murmurs, S3, S4 were hard to assess secondary to patient's tachyarrhythmia RESPIRATORY: No accessory muscle use. Clear to auscultation. Breath sounds equal bilaterally. GASTROINTESTINAL: Abdomen soft, non-tender, nondistended. Hepatic and splenic margins not palpable. MUSCULOSKELETAL: Extremities without clubbing, cyanosis, or edema. No obvious deformities. Full range of motion of the upper and lower extremities bilaterally. 2+ pulses bilaterally. NEUROLOGICAL: Awake and alert. No obvious cranial nerve deficits. Motor grossly within normal limits. Five out of 5 muscle strength in the arms and legs. Normal speech. PSYCHIATRIC: Appropriate mood and affect; insight and judgment normal. Data Data Last Documented VS Vital Signs Date Time Temp Pulse Resp B/P (MAP) Pulse Ox O2 Delivery O2 Flow Rate FiO2 12/29/16 19:45 129 162/110 12/29/16 19:25 16 96 Room Air 12/29/16 18:32 98.5 Orders Orders Electrocardiogram (12/29/16 18:34) Basic Metabolic Panel (Bmp) (12/29/16 18:34) Ckmb (Isoenzyme) Profile (12/29/16 18:34) Complete Blood Count With Diff (12/29/16 18:34) Magnesium (Mg) (12/29/16 18:34) Prothrombin Time / Inr (Pt) (12/29/16 18:34) Act Partial Throm Time (Ptt) (12/29/16 18:34) Troponin I (12/29/16 18:34) Chest, Single Ap (12/29/16 18:34) Ecg Monitoring (12/29/16 18:34) Bilateral Bp Monitoring (12/29/16 18:34) Iv Access Insert/Monitor (12/29/16 18:34) Oximetry (12/29/16 18:34) Oxygen Administration (12/29/16 18:34) Sodium Chloride 0.9% Flush (Ns Flush) (12/29/16 18:45) Vital Signs (Adult) Q15MX4,Q4H (12/29/16 18:34) Solar Field Service Technician / Telemetry JUANA.Q8H (12/29/16 18:34) Cardiac Rhythm JUANA.Q8H (12/29/16 18:34) Notify Dr: Other (12/29/16 18:34) Diltiazem Inj (Cardizem Inj) (12/29/16 18:45) Diltiazem Inj (Cardizem Inj) (12/29/16 18:45) ^ Medication Alert (12/29/16 19:19) ^ Discontinue (12/29/16 19:19) Dextrose 5% In Wate... W/Amiodarone Inj (12/29/16 19:19) Dextrose 5% In Wate... W/Amiodarone Inj (12/29/16 19:29) Vital Signs (Adult) JUANA.Q4H (12/29/16 19:19) Admit Order (Ed Use Only) (12/29/16 19:46) Consult Cardiology (12/29/16 ) Labs Laboratory Tests Test 12/29/16 18:40 White Blood Count 9.5 TH/MM3 Red Blood Count 4.94 MIL/MM3 Hemoglobin 15.0 GM/DL Hematocrit 43.4 % Mean Corpuscular Volume 87.9 FL Mean Corpuscular Hemoglobin 30.4 PG Mean Corpuscular Hemoglobin Concent 34.6 % Red Cell Distribution Width 14.1 % Platelet Count 264 TH/MM3 Mean Platelet Volume 7.5 FL Neutrophils (%) (Auto) 66.0 % Lymphocytes (%) (Auto) 22.2 % Monocytes (%) (Auto) 8.6 % Eosinophils (%) (Auto) 2.7 % Basophils (%) (Auto) 0.5 % Neutrophils # (Auto) 6.3 TH/MM3 Lymphocytes # (Auto) 2.1 TH/MM3 Monocytes # (Auto) 0.8 TH/MM3 Eosinophils # (Auto) 0.3 TH/MM3 Basophils # (Auto) 0.0 TH/MM3 CBC Comment DIFF FINAL Differential Comment Prothrombin Time 10.6 SEC Prothromb Time International Ratio 1.0 RATIO Activated Partial Thromboplast Time 29.1 SEC Blood Urea Nitrogen 18 MG/DL Creatinine 1.26 MG/DL Random Glucose 112 MG/DL Calcium Level 7.7 MG/DL Magnesium Level 2.1 MG/DL Sodium Level 143 MEQ/L Potassium Level 3.2 MEQ/L Chloride Level 110 MEQ/L Carbon Dioxide Level 24.1 MEQ/L Anion Gap 9 MEQ/L Estimat Glomerular Filtration Rate 58 ML/MIN Total Creatine Kinase 64 U/L Troponin I 0.21 NG/ML MDM Medical Decision Making Medical Screen Exam Complete: Yes Emergency Medical Condition: Yes Medical Record Reviewed: Yes Interpretation(s) CBC & BMP Diagram 12/29/16 18:40 Calcium Level 7.7 L, Magnesium Level 2.1 Troponin elevated at 0.22 EKG shows atrial fibrillation with RVR. Read by me and attending. CXR negative Differential Diagnosis Atrophic relation with RVR versus atrial fibrillation versus chest pain versus electrolyte abnormality Narrative Course 66-year-old female that presents to the ED for evaluation of A. fib. Patient was properly examined and was found to have signs and symptoms consistent with a fib with RVR. Patient was started on the Cardizem drip. Call was placed to patient's assistant broker. Procedures EKG Prior to Arrival: Yes Diagnosis Primary Impression: Atrial fibrillation Qualified Codes: I48.0 - Paroxysmal atrial fibrillation Admitting Information Admitting Physician Requests: Admit Richmond Servin Dec 29, 2016 19:09
[2016-12-29] MEDS ORDERED: AMIODARONE INJ 150 MG in DEXTROSE 5% IN WATER 100ML INJ 100 ML IV ONE ×2 (19:19)
[2016-12-29 19:25] VITALS: BP 162/110; PULSE 130; RESP 16; O2SAT 96
[2016-12-29 19:26] LABS: BICARBONATE 24.1 MEQ/L (21.0-32.0); MAGNESIUM 2.1 MG/DL (1.5-2.5); POTASSIUM 3.2 MEQ/L (3.5-5.1)
--- NOTE | 2016-12-29 19:26 | RADRPT ---
EXAM DATE/TIME: 12/29/2016 18:43 [facility] COMPARISON: CHEST SINGLE AP, August 04, 2016, 10:41. INDICATIONS : Chest Pain MEDICAL HISTORY : Atrial Fib SURGICAL HISTORY : None. ENCOUNTER: Initial ACUITY: 1 day PAIN SCORE: 5/10 LOCATION: Bilateral chest FINDINGS: A single view of the chest demonstrates the lungs to be symmetrically aerated without evidence of mas s, infiltrate or effusion. The cardiomediastinal contours are unremarkable. Osseous structures are intact. CONCLUSION: The lungs are clear. Daniel Bach MD on December 29, 2016 at 19:25 Board Certified Radiologist. This report was verified electronically.
--- NOTE | 2016-12-29 19:51 | HHI.HP ---
HPI Service [facility] Primary Care Physician Brady Albert, DO Admission Diagnosis atrial fibrillation on RVR Diagnoses: (1) Atrial fibrillation with RVR Diagnosis: Principal (2) Elevated troponin Diagnosis: Principal (3) Hypokalemia Diagnosis: Principal (4) Dehydration Diagnosis: Principal (5) HTN (hypertension) Diagnosis: Principal Travel History International Travel<30 Days: No Contact w/Intl Traveler <30 Da: No Traveled to Known Affected Are: No History of Present Illness This is a 66-year-old male with a PMH of A. fib on Eliquis, s/p Ablation x3, HTN , Polymyalgia Rheumatica and h/o CAD who was brought to the ER by EMS secondary to episode of A-fib w/ RVR. Pt follows w/ Dr. Perrea, underwent Ablation on 12/25. Today, states he was sitting watching the [employer] game when he had sudden onset of palpitations, states he took Cardizem 240mg x1 at that time w/ some improvement, few hours later had recurrent episode of palpitations and took Amiodarone 200mg x1 w/ minimal improvement. Upon EMS arrival, pt noted to be in A-fib w/ RVR, HR 150-160's, s/p Cardizem 20mg IV en route w/ minimal improvement. On arrival to ER, HR 130-140's, started on Cardizem gtt w/ HR 110- 120's. Dr. Richards consulted by ER physician, recommended change to Amiodarone gtt. BP currently 142/94, HR 117, O2 sat 96% on RA, Afebrile. CBC normal. K+ 3.2. GFR 58. Trop 0.21. Review of Systems Except as stated in HPI: all other systems reviewed are Neg ROS: 14 point review of systems otherwise negative. Past Family Social History Past Medical History PMH: A. fib on Eliquis, s/p Ablation x3, HTN, Polymyalgia Rheumatica and h/o CAD Past Surgical History PAST SURGICAL HISTORY: Cardiac Ablation Allergies: Coded Allergies: doxazosin (Unverified Adverse Reaction, Unknown, Arrhythmias, 11/13/16) doxycycline (Unverified Adverse Reaction, Unknown, PHOTOSENSITIVITY, ) temazepam (Unverified Adverse Reaction, Unknown, Arrhythmias, 11/13/16) Family History PAST FAMILY HISTORY: Reviewed. No h/o DM or CAD Social History PAST SOCIAL HISTORY: Occasional alcohol. Negative for tobacco or drugs. Physical Exam Vital Signs Vital Signs Date Time Temp Pulse Resp B/P (MAP) Pulse Ox O2 Delivery O2 Flow Rate FiO2 12/29/16 19:45 129 162/110 12/29/16 19:25 130 16 162/110 (127) 96 Room Air 12/29/16 19:02 133 159/94 12/29/16 18:41 134 18 159/94 (115) 95 Room Air 12/29/16 18:41 95 Room Air 12/29/16 18:41 133 18 97 Room Air 12/29/16 18:41 95 Room Air 12/29/16 18:32 98.5 133 18 159/91 (113) 95 Physical Exam PE: GENERAL: Very pleasant middle-aged white male in no acute distress. at bedside. HEENT: PERRLA, EOMI. No scleral icterus or conjunctival pallor. No lid lag or facial droop. CARDIOVASCULAR: Irregularly irregular, in A. fib, HR 107-110. No obvious murmurs to auscultation. No chest tenderness to palpation. RESPIRATORY: No obvious rhonchi or wheezing. Clear to auscultation. Breath sounds equal bilaterally. GASTROINTESTINAL: Abdomen soft, non-tender, nondistended. BS normal. MUSCULOSKELETAL: Extremities without clubbing, cyanosis, or edema. No obvious deformities. NEUROLOGICAL: Awake, alert and oriented x4. No focal neurologic deficits. Moving both upper and lower extremities spontaneously. Laboratory Laboratory Tests Test 12/29/16 18:40 White Blood Count 9.5 Red Blood Count 4.94 Hemoglobin 15.0 Hematocrit 43.4 Mean Corpuscular Volume 87.9 Mean Corpuscular Hemoglobin 30.4 Mean Corpuscular Hemoglobin Concent 34.6 Red Cell Distribution Width 14.1 Platelet Count 264 Mean Platelet Volume 7.5 Neutrophils (%) (Auto) 66.0 Lymphocytes (%) (Auto) 22.2 Monocytes (%) (Auto) 8.6 Eosinophils (%) (Auto) 2.7 Basophils (%) (Auto) 0.5 Neutrophils # (Auto) 6.3 Lymphocytes # (Auto) 2.1 Monocytes # (Auto) 0.8 Eosinophils # (Auto) 0.3 Basophils # (Auto) 0.0 CBC Comment DIFF FINAL Differential Comment Prothrombin Time 10.6 Prothromb Time International Ratio 1.0 Activated Partial Thromboplast Time 29.1 Blood Urea Nitrogen 18 Creatinine 1.26 Random Glucose 112 Calcium Level 7.7 Magnesium Level 2.1 Sodium Level 143 Potassium Level 3.2 Chloride Level 110 Carbon Dioxide Level 24.1 Anion Gap 9 Estimat Glomerular Filtration Rate 58 Total Creatine Kinase 64 Troponin I 0.21 Result Diagram: 12/29/16183912/29/161839 Caprini VTE Risk Assessment Caprini VTE Risk Assessment: Mod/High Risk (score >= 2) Caprini Risk Assessment Model Point Value = 1 Point Value = 2 Point Value = 3 Point Value = 5 Age 41-60 Minor surgery BMI > 25 kg/m2 Swollen legs Varicose veins or History of unexplained or recurrent spontaneous Oral contraceptives or hormone replacement Sepsis (< 1 month) Serious lung disease, including pneumonia (< 1 month) Abnormal pulmonary function Acute myocardial infarction Congestive heart failure (< 1 month) History of inflammatory bowel disease Medical patient at bed rest Age 61-74 Arthroscopic surgery Major open surgery (> 45 min) Laparoscopic surgery (> 45 min) Malignancy Confined to bed (> 72 hours) Immobilizing plaster cast Central venous access Age >= 75 History of VTE Family history of VTE Factor V Leiden Prothrombin [id number] Lupus anticoagulant Anticardiolipin antibodies Elevated serum homocysteine Heparin-induced thrombocytopenia Other congenital or acquired thrombophilia Stroke (< 1 month) Elective arthroplasty Hip, pelvis, or leg fracture Acute spinal cord injury (< 1 month) Prophylaxis Regimen Total Risk Factor Score Risk Level Prophylaxis Regimen 0-1 Low Early ambulation 2 Moderate Order ONE of the following: *Sequential Compression Device (SCD) *Heparin 5000 units SQ BID 3-4 Higher Order ONE of the following medications: *Heparin 5000 units SQ TID *Enoxaparin/Lovenox 40 mg SQ daily (WT < 150 kg, CrCl > 30 mL/min) *Enoxaparin/Lovenox 30 mg SQ daily (WT < 150 kg, CrCl > 10-29 mL/min) *Enoxaparin/Lovenox 30 mg SQ BID (WT < 150 kg, CrCl > 30 mL/min) AND/OR *Sequential Compression Device (SCD) 5 or more Highest Order ONE of the following medications: *Heparin 5000 units SQ TID (Preferred with Epidurals) *Enoxaparin/Lovenox 40 mg SQ daily (WT < 150 kg, CrCl > 30 mL/min) *Enoxaparin/Lovenox 30 mg SQ daily (WT < 150 kg, CrCl > 10-29 mL/min) *Enoxaparin/Lovenox 30 mg SQ BID (WT < 150 kg, CrCl > 30 mL/min) AND *Sequential Compression Device (SCD) Assessment and Plan Problem List: (1) Atrial fibrillation with RVR ICD Code: I48.91 - Unspecified atrial fibrillation (2) Elevated troponin ICD Code: R74.8 - Abnormal levels of other serum enzymes (3) Dehydration ICD Code: E86.0 - Dehydration (4) Hypokalemia ICD Code: E87.6 - Hypokalemia (5) HTN (hypertension) ICD Code: I10 - Essential (primary) hypertension Assessment and Plan A/P: 1. Afib w/ RVR: Recurrent, s/p Ablation x3, most recent ablation by Dr. Perera on 12/25/16, now w/ recurrent RVR. Took Cardizem and Amio PO at home w/ minimal improvement, s/p Cardizem 20mg IV by EMS and started on Cardizem gtt in ER, HR 120-130's. Dr. Richards consulted by ER physician, recommended change to Amio gtt, HR currently 107-110. Will continue. Admit to [facility]. Consult Cardiology. Continue home Eliquis 2. Elevated Trop: Likely secondary to episode of A-fib w/ RVR, possibly compounded by recent ablation. No c/o chest pain. Check serial cardiac enzymes. 3. Dehydration: GFR 58. BUN/Creat normal. IVF for hydration, repeat labs in am. 4. Hypokalemia: Mild. K+ 3.2, will replace and recheck in am. 5. HTN: BP 160's, currently on Amio gtt for A-fib, monitor BP. 6. DVT Prophylaxis: Eliquis 7. Social work for d/c planning as needed. 8. Case discussed w/ ER physician at length. Physician Certification 2 Midnight Certification Type: Admission for Inpatient Services Order for Inpatient Services The services are ordered in accordance with Medicare regulations or non- Medicare payer requirements, as applicable. In the case of services not specified as inpatient-only, they are appropriately provided as inpatient services in accordance with the 2-midnight benchmark. Estimated LOS (days): 2 days is the estimated time the patient will need to remain in the hospital, assuming treatment plan goals are met and no additional complications. Post-Hospital Plan: Not yet determined Teresa Caban MD Dec 29, 2016 19:51
[2016-12-29] MEDS: AMIODARONE INJ 450 MG in DEXTROSE 5% IN WATE(EXCEL) INJ 241 ML IV SCH ×2 (19:57)
[2016-12-29] MEDS ORDERED: ACETAMINOPHEN 325 MG TAB PO PRN (20:00)
[2016-12-29] MEDS ORDERED: SODIUM CHLORIDE 0.9% FLUSH 10 ML FLUSH IV FLUSH PRN (20:00)
[2016-12-29] MEDS ORDERED: ACETAMINOPHEN/HYDROcodone 325 MG/5 MG TAB PO PRN (20:00)
[2016-12-29] MEDS ORDERED: MAGNESIUM HYDROXIDE SUSP 30 ML CUP PO PRN (20:00)
[2016-12-29] MEDS ORDERED: MORPHINE SULFATE 4 MG/ML INJ IV PUSH PRN (20:00)
[2016-12-29] MEDS ORDERED: LACTULOSE SYRUP 20 GM/30 ML CUP PO PRN (20:00)
[2016-12-29] MEDS ORDERED: SODIUM CHLOR 0.9% 1000 ML INJ 1,000 ML IV ONE (20:00)
[2016-12-29] MEDS ORDERED: BISACODYL 10 MG SUPP RECTAL PRN (20:00)
[2016-12-29] MEDS ORDERED: SENNOSIDES 8.6 MG TAB PO PRN (20:00)
[2016-12-29] MEDS ORDERED: ONDANSETRON HCL 4 MG/2 ML VIAL IVP PRN (20:00)
[2016-12-29] MEDS ORDERED: POTASSIUM CHLORIDE 20 MEQ CONTROLLED RELEASE TAB PO ONE (20:15)
[2016-12-29 20:22] VITALS: BP 142/94; PULSE 116; RESP 16; O2SAT 96
[2016-12-29] MEDS: SODIUM CHLORIDE 0.9% FLUSH 10 ML FLUSH IV FLUSH SCH (20:48)
[2016-12-29] MEDS: APIXABAN 5 MG TABLET PO SCH (21:37)
[2016-12-29] MEDS: DOCUSATE SODIUM 50 MG/SENNA 8.6 MG TAB PO SCH (22:00)
[2016-12-29 22:30] VITALS: BP 140/91; PULSE 93; RESP 20; TEMP 98.4; O2SAT 95
[2016-12-29 23:00] VITALS: PULSE 96
[2016-12-30] VITALS (22 sets, daily range): BP systolic 125–144; BP diastolic 83–94; PULSE 74–116; RESP 16–19; TEMP 97.7–98.4; O2SAT 96–98
[2016-12-30] MEDS: AMITRIPTYLINE HCL 25 MG TAB PO SCH ×2 (00:11→21:41)
[2016-12-30] MEDS: ZOLPIDEM TARTRATE 10 MG TAB PO PRN ×2 (00:12→21:42)
--- NOTE | 2016-12-30 01:12 | EKG ---
Date Performed: 12/29/2016 Time Performed: 18:37:28 PTAGE: 66 years EKG: ATRIAL FIBRILLATION WITH RAPID VENTRICULAR RESPONSE NONSPECIFIC ST & T-WAVE ABNORMALITY ABN ORMAL RHYTHM ECG PREVIOUS TRACING : 12/25/2016 05.47 Compared to previous tracing, atrial fibrillation has repla consuelo Sinus rhythm , heart rate has increased. DOCTOR: Leodan Alas Interpretating Date/Time 12/30/2016 01:11:36
[2016-12-30] MEDS: AMIODARONE INJ 450 MG in DEXTROSE 5% IN WATE(EXCEL) INJ 241 ML IV SCH ×6 (03:04→17:37)
[2016-12-30 07:42] LABS: AUTOMATED NEUTROPHIL # 4.7 TH/MM3 (1.8-7.7); BASOPHIL % 0.6 % (0.0-2.0); EOSINOPHIL # 0.2 TH/MM3 (0-0.4); HEMO FLAGS DIFF FINAL; LYMPH % 26.7 % (9.0-44.0); MEAN CELL VOLUME 88.9 FL (80.0-100.0); MEAN CORPUSCULAR HEMOGLOBIN 30.5 PG (27.0-34.0); MEAN CORPUSCULAR HGB CONC 34.3 % (32.0-36.0); NEUT % 60.7 % (16.0-70.0); PLATELET COUNT 236 TH/MM3 (150-450); RED BLOOD COUNT 4.61 MIL/MM3 (4.50-5.90); RED CELL DISTRIBUTION WIDTH 14.3 % (11.6-17.2); WHITE BLOOD COUNT 7.7 TH/MM3 (4.0-11.0)
[2016-12-30 08:23] LABS: ANION GAP 9 MEQ/L (5-15); AST (GOT) 24 U/L (15-37); BICARBONATE 24.2 MEQ/L (21.0-32.0); BLOOD UREA NITROGEN 16 MG/DL (7-18); CHLORIDE 109 MEQ/L (98-107); GLOMERULAR FILTRATION RATE 59 ML/MIN (>89); POTASSIUM 3.9 MEQ/L (3.5-5.1); SODIUM (NA) 142 MEQ/L (136-145)
[2016-12-30 08:24] LABS: ALT (GPT) 41 U/L (12-78)
[2016-12-30 08:28] LABS: ALKALINE PHOSPHATASE 72 U/L (45-117); TOTAL BILIRUBIN ADULT 0.4 MG/DL (0.2-1.0)
[2016-12-30] MEDS: DOCUSATE SODIUM 50 MG/SENNA 8.6 MG TAB PO SCH ×2 (08:43→21:00)
[2016-12-30] MEDS: SODIUM CHLORIDE 0.9% FLUSH 10 ML FLUSH IV FLUSH SCH ×2 (08:44→21:00)
[2016-12-30] MEDS: APIXABAN 5 MG TABLET PO SCH ×2 (08:44→21:40)
[2016-12-30] MEDS ORDERED: NON-FORMULARY DRUG (Rosuvastatin (Crestor) 10 MG) PO SCH (09:00)
[2016-12-30] MEDS ORDERED: ATORVASTATIN 20 MG TAB PO SCH (09:00)
--- NOTE | 2016-12-30 10:33 | MB ---
cc: ELSIE WHITE MD DATE OF CONSULTATION: 12/30/2016 REASON FOR CONSULTATION: A-fib HISTORY OF PRESENT ILLNESS: The patient is a very pleasant 66 year-old gentleman who sees my partne, Dr. Perera, with a history of three A-fib ablations most recently last Saturday. He presented with a couple of days with general malaise which he attributes to his recurrent atrial fibrillation. He presented in mildly rapidly atrial fibrillation, was admitted, started on Cardizem and then a amiodarone drip. The amiodarone drip continues but the diltiazem drip has since been weaned off. He is now asymptomatic denying any residual symptoms. He has no chest pain, shortness of breath, lightheadedness or dizziness. PAST MEDICAL HISTORY: 1. Atrial fibrillation, status post three ablations. 2. Hypertension. 3. PMR. CURRENT MEDICATIONS 1. Atorvastatin 20 milligrams daily. 2. Elavil 25 milligrams p.o. q hs. 3. Eliquis 5 milligrams b.i.d. 4. Amiodarone drip. ALLERGIES: DOXYCYCLINE DOXAZOSIN TEMAZEPAM PHYSICAL EXAMINATION: Afebrile, pulse 94, respiratory 19, BP 140/83, sating 97% on room air. General: Pleasant gentleman in no distress. Neck: No JVD. Lungs: Clear to auscultation bilaterally. Cardiovascular: Irregularly irregular rhythm with a regular rate. No murmurs appreciated. Abdomen: Benign. Extremities: No edema. LABORATORY DATA White count 7.7, hematocrit 41.0, platelets to 236, sodium 142, potassium 3.2, chloride 109, bicarb 24.2. BUN 16, creatinine 2.24, glucose 97. Troponins are slightly elevated at 0.21, 0.2, 0.18. EKG on admission shows atrial fibrillation and 137 beats per minute with nonspecific ST changes. Current telemetry shows a borderline controlled atrial fibrillation. IMPRESSION 1. Rapid atrial fibrillation. The patient has very difficult to control atrial fibrillation and is now status post three ablations. I will reinitiate his amiodarone at a higher dose as well as is oral Cardizem and try to get his amiodarone drip off. I suspect he will require another day for med optimization and will plan on [facility] for Dr. Perera to evaluate tomorrow morning in this regard. 2. Elevated troponin. His elevated troponin is nonspecific and is probably due to his rapid ventricular response or even cardiac ablation last week. He denies any chest pain but says it has been many years since he has had a stress test, so will have him undergo a nuclear stress test while he is here. Further recommendations will be based on his clinical course. Thank you again for the opportunity to participate in this patient's care. MD MIGUEL Bauer/LALA /10:15 AM /10:20 AM
[2016-12-30] MEDS: AMIODARONE 200 MG TAB PO SCH ×2 (11:14→21:41)
[2016-12-30] MEDS: DILTIAZEM-CD 180 MG CAP ER PO SCH (11:14)
[2016-12-30] MEDS ORDERED: REGADENOSON INJ 0.4 MG/5 ML SYR ONE (14:21)
--- NOTE | 2016-12-30 16:15 | HHI.PR ---
Subjective Remarks Follow up for Afib with RVR. Attempted to see patient when he was in nuclear medicine for nuclear stress test. I discussed with family members at length. Later, I came back and saw patient. Patient is doing well. No chest pain, SOB, fever, chills. Per family and patient, he does not recall taking metoprolol for rate control in the past. Objective Vitals Vital Signs Date Time Temp Pulse Resp B/P (MAP) Pulse Ox O2 Delivery O2 Flow Rate FiO2 12/30/16 13:00 93 12/30/16 12:00 106 12/30/16 11:00 116 12/30/16 11:00 95 19 144/87 (106) 97 12/30/16 10:00 94 12/30/16 09:00 100 12/30/16 08:00 86 12/30/16 07:15 97.8 98 19 140/83 (102) 97 12/30/16 07:15 94 12/30/16 06:00 92 12/30/16 05:00 94 12/30/16 04:00 90 12/30/16 03:04 89 132/83 12/30/16 03:00 97.7 89 16 132/83 (99) 97 12/30/16 03:00 91 12/30/16 02:00 90 12/30/16 01:00 94 12/30/16 00:00 92 12/29/16 23:00 96 12/29/16 22:30 98.4 93 20 140/91 (107) 95 12/29/16 20:22 116 16 142/94 (110) 96 12/29/16 20:15 117 149/95 12/29/16 19:57 117 142/94 12/29/16 19:45 129 162/110 12/29/16 19:25 130 16 162/110 (127) 96 Room Air 12/29/16 19:02 133 159/94 12/29/16 18:41 134 18 159/94 (115) 95 Room Air 12/29/16 18:41 95 Room Air 12/29/16 18:41 133 18 97 Room Air 12/29/16 18:41 95 Room Air 12/29/16 18:32 98.5 133 18 159/91 (113) 95 I/O 9/30/17 9/30/12/29/16 12/30/16 12/30/16 12/30/16 07:00 15:00 23:00 07:00 15:00 23:00 Intake Total 720 ml Output Total 800 ml Balance -80 ml Intake Oral 720 ml Output Urine Total 800 ml Result Diagram: 12/30/16 0644 12/30/16 0644 Imaging Last Impressions Chest X-Ray 12/29/16 1834 Signed Impressions: Service Date/Time: Thursday, December 29, 2016 18:43 - CONCLUSION: The lungs are clear. Daniel Bach MD Objective Remarks GENERAL: Alert, Oriented x 3, NAD. SKIN: Warm and dry. HEAD: Normocephalic. EYES: No scleral icterus. No injection or drainage. NECK: Supple, trachea midline. No JVD or lymphadenopathy. CARDIOVASCULAR: Irregularly irregular without murmurs, gallops, or rubs. RESPIRATORY: Breath sounds equal bilaterally. No accessory muscle use. GASTROINTESTINAL: Abdomen soft, non-tender, nondistended. MUSCULOSKELETAL: No cyanosis, or edema. BACK: Nontender without obvious deformity. No CVA tenderness. Procedures Nuclear stress test 12/30/2016 --> no evidence of stress-induced ischemia. A/P Problem List: (1) Atrial fibrillation with RVR ICD Code: I48.91 - Unspecified atrial fibrillation (2) Hypokalemia ICD Code: E87.6 - Hypokalemia (3) HTN (hypertension) ICD Code: I10 - Essential (primary) hypertension (4) NSTEMI (non-ST elevated myocardial infarction) ICD Code: I21.4 - Non-ST elevation (NSTEMI) myocardial infarction (5) CKD (chronic kidney disease) stage 3, GFR 30-59 ml/min ICD Code: N18.3 - Chronic kidney disease, stage 3 (moderate) Assessment and Plan This is a 66-year-old male with a PMH of A. fib on Eliquis, s/p Ablation x3, HTN , Polymyalgia Rheumatica and h/o CAD who was brought to the ER by EMS secondary to episode of A-fib w/ RVR. Pt follows w/ Dr. Perera, underwent Ablation on 12/25. Upon EMS arrival, pt noted to be in A-fib w/ RVR, HR 150-160's, s/p Cardizem 20mg IV en route w/ minimal improvement. On arrival to ER, HR 130-140' s, started on Cardizem gtt w/ HR 110-120's. Upon admission, CBC normal. K+ 3.2. GFR 58. Trop 0.21. - Atrial fibrillation, chronic - Refractory to previous ablations and cardioversions. - Patient is currently on Diltiazem 360mg Qday, Amiodarone drip. Development Geologist added Amiodarone PO as well. - Discussed at length with patient, family. I do not see any obvious contraindication to beta blockers. - Will start patient on Metoprolol 25mg Q8hrs with holding parameters. - Dr. Perera will evaluate patient tomorrow. Hopefully, we can wean off Amiodarone drip. - Continue Apixaban 5mg BID for anti-coagulation. - NSTEMI - likely type 2 due to atrial fib with RVR. - Coronary artery disease - Troponins were 0.21, 0.20, 0.18. - No chest pain. Patient underwent nuclear stress test per cardiology today. - Nuclear stress test reveals no stress-induced ischemia. - Continue Apixaban. Currently on Lipitor 20mg Qday, will increase to 40mg Qday. - CKD stage 3 - Hypokalemia - Creatinine 1.24 on 12/30/2016. In 08/2015, Creatinine was 1.35. - Hypokalemia is corrected with supplementation. K+ 3.2 --> 3.9. Mg 2.1 - Avoid nephrotoxins. - Hypertension - systolic BP in the 160s on admission. - Currently in the 140s range. - With introduction of metoprolol, BP may decrease slightly. - If further decrease is desired, we will consider switching to Carvedilol. Full code. Apixaban. Ariela Youngblood DO Dec 30, 2016 16:15
--- NOTE | 2016-12-30 16:48 | RADRPT ---
EXAM DATE/TIME: 12/30/2016 13:50 [facility] COMPARISON: No previous studies available for comparison. INDICATIONS : Atrial fibrillation. Myocardial infarction. DOSE: 25.8 mCi Tc99m Myoview at stress. 8.1 mCi Tc99m Myoview at rest. 0.4 mg Lexiscan STRESS SYMPTOMS: Palpitations. EJECTION FRACTION: 51% MEDICAL HISTORY : Hypertension. SURGICAL HISTORY : Atrial fibrillation ablation. ENCOUNTER: Initial ACUITY: 1 day PAIN SCALE: 3/10 LOCATION: Bilateral chest TECHNIQUE: The patient underwent pharmacologic stress with infusion of prescribed dose. Continuous ECG tracing was monitored during stress. Gated SPECT imaging was performed after stress and conventional SPECT i maging was performed at rest. The examination was performed on a SPECT/CT scanner, both attenuation and non-corrected datasets were reviewed. FINDINGS: DISTRIBUTION: The maximum perfused segment at stress is in the anterior wall. PERFUSION STUDY: The pattern of perfusion at stress is within normal limits, with regional variations of perfusion wit hin 25%. The pattern of perfusion at stress and rest is similar. The summed stress score is one.. GATED STUDY: There is intact wall motion and thickening without hypokinetic or dyskinetic segments. CONCLUSION: 1. No evidence of stress-induced ischemia. 2. Intact wall motion with 51% ejection fraction. RISK CATEGORY: Low (<1% Annual Mortality Rate) Daniel Bach MD on December 30, 2016 at 16:42 Board Certified Radiologist. This report was verified electronically.
[2016-12-30] MEDS: METOPROLOL TARTRATE 25 MG TAB PO SCH (21:41)
[2016-12-31] VITALS (11 sets, daily range): BP systolic 117–124; BP diastolic 82–85; PULSE 62–73; RESP 16–20; TEMP 97.5–98.1; O2SAT 96–98
[2016-12-31] MEDS: METOPROLOL TARTRATE 25 MG TAB PO SCH (05:32)
[2016-12-31] MEDS: DILTIAZEM-CD 180 MG CAP ER PO SCH (08:28)
[2016-12-31] MEDS: AMIODARONE 200 MG TAB PO SCH (08:29)
[2016-12-31] MEDS: APIXABAN 5 MG TABLET PO SCH (08:29)
[2016-12-31] MEDS: DOCUSATE SODIUM 50 MG/SENNA 8.6 MG TAB PO SCH (08:29)
[2016-12-31] MEDS: SODIUM CHLORIDE 0.9% FLUSH 10 ML FLUSH IV FLUSH SCH (08:29)
[2016-12-31] MEDS: AMIODARONE INJ 450 MG in DEXTROSE 5% IN WATE(EXCEL) INJ 241 ML IV SCH ×2 (08:34)
[2016-12-31] MEDS ORDERED: ATORVASTATIN 20 MG TAB PO SCH (09:00)
--- NOTE | 2016-12-31 10:03 | HHI.PR ---
Subjective Remarks Feeling ok Objective Vital Signs Date Time Temp Pulse Resp B/P (MAP) Pulse Ox O2 Delivery O2 Flow Rate FiO2 12/31/16 09:58 72 12/31/16 08:30 62 12/31/16 08:30 97.5 63 18 117/82 (94) 97 12/31/16 06:00 70 12/31/16 05:00 72 12/31/16 04:00 73 12/31/16 03:00 72 12/31/16 03:00 98.1 73 20 119/85 (96) 96 12/31/16 02:00 66 12/31/16 01:00 72 12/31/16 00:00 73 12/30/16 23:00 78 12/30/16 23:00 98.4 74 16 135/92 (106) 96 12/30/16 22:00 94 12/30/16 21:00 94 12/30/16 20:00 95 12/30/16 19:00 94 12/30/16 19:00 98.0 98 16 125/94 (104) 97 12/30/16 18:06 99 12/30/16 17:00 99 12/30/16 16:00 83 19 143/91 (108) 98 12/30/16 16:00 77 12/30/16 13:00 93 12/30/16 12:00 106 12/30/16 11:00 116 12/30/16 11:00 95 19 144/87 (106) 97 12/30/16 10:00 94 I/O 12/30/16 12/30/16 12/30/16 12/31/16 12/31/16 12/31/16 07:00 15:00 23:00 07:00 15:00 23:00 Intake Total 720 ml 240 ml 720 ml Output Total 800 ml 625 ml 450 ml Balance -80 ml -385 ml 270 ml Intake Oral 720 ml 240 ml 720 ml Output Urine Total 800 ml 625 ml 450 ml # Voids 2 Result Diagram: 12/30/1644 12/30/1644 Imaging Alert, fully oriented Lungs: ventilated Heart: S1, S2 regular, no gallop Abdomen: soft, no mass Ext: no edema Last Impressions Myocardial Perfusion Scan Nuc Med 12/30/16 0000 Signed Impressions: Service Date/Time: Friday, December 30, 2016 13:50 - CONCLUSION: 1. No evidence of stress-induced ischemia. 2. Intact wall motion with 51%% ejection fraction. RISK CATEGORY: Low (<1%% Annual Mortality Rate) Daniel Bach MD Chest X-Ray 12/29/16 1834 Signed Impressions: Service Date/Time: Thursday, December 29, 2016 18:43 - CONCLUSION: The lungs are clear. Daniel Bach MD Current Medications Medications (Trade) Dose Ordered Sig/Tacos Route Start Time Stop Time Status Last Admin Amiodarone HCl 450 mg/Dextrose 250 ml @ 33 mls/hr Q7H35M IV 12/29/16 19:29 12/29/16 19:57 (NS Flush) 2 ml UNSCH PRN IV FLUSH 12/29/16 20:00 (NS Flush) 2 ml BID IV FLUSH 12/29/16 21:00 12/31/16 08:29 (Zofran Inj) 4 mg Q6H PRN IVP 12/29/16 20:00 (Tylenol) 650 mg Q6H PRN PO 12/29/16 20:00 ([place] 5-325 Mg) 1 tab Q4H PRN PO 12/29/16 20:00 (Morphine Inj) 2 mg Q3H PRN IV PUSH 12/29/16 20:00 (Jennifer-Colace) 1 tab BID PO 12/29/16 21:00 12/30/16 08:43 (Milk Of Magnesia Liq) 30 ml Q12H PRN PO 12/29/16 20:00 (Senokot) 17.2 mg Q12H PRN PO 12/29/16 20:00 (Dulcolax Supp) 10 mg DAILY PRN RECTAL 12/29/16 20:00 (Lactulose Liq) 30 ml DAILY PRN PO 12/29/16 20:00 (Elavil) 25 mg HS PO 12/29/16 21:00 12/30/16 21:41 (Eliquis) 5 mg BID PO 12/29/16 21:00 12/31/16 08:29 (Ambien) 10 mg HS PRN PO 12/29/16 20:00 12/30/16 21:42 (Cordarone) 200 mg Q12HR PO 12/30/16 10:30 12/31/16 08:29 (Cardizem Cd) 360 mg DAILY PO 12/30/16 10:30 12/31/16 08:28 (Lopressor) 25 mg Q8HR PO 12/30/16 22:00 12/31/16 05:32 (Lipitor) 40 mg DAILY PO 12/31/16 09:00 Assessment and Plan Problem List: (1) Palpitations ICD Codes: R00.2 - Palpitations Status: Acute Plan: No significant episode reported (2) Atrial fibrillation with RVR ICD Codes: I48.91 - Unspecified atrial fibrillation Plan: Back into sinus rhythm HR control. Metoprolol DC Amio decreased to 200mg/day May be acute inflammatory response post ablation. Can be DH If present afib in the future then Tikosyn will be considered. Pepe Perera MD Dec 31, 2016 10:03
[2016-12-31] MEDS ORDERED: CARD180C5 PO ×2 (11:10→11:30)
--- NOTE | 2016-12-31 11:12 | HHI.DS ---
Discharge Summary Admission Date Dec 29, 2016 at 19:49 Discharge Date: Dec 31, 2016 Admitting Diagnosis atrial fibrillation on RVR (1) Atrial fibrillation with RVR ICD Code: I48.91 - Unspecified atrial fibrillation Diagnosis: Principal (2) Hypokalemia ICD Code: E87.6 - Hypokalemia (3) HTN (hypertension) ICD Code: I10 - Essential (primary) hypertension (4) NSTEMI (non-ST elevated myocardial infarction) ICD Code: I21.4 - Non-ST elevation (NSTEMI) myocardial infarction (5) CKD (chronic kidney disease) stage 3, GFR 30-59 ml/min ICD Code: N18.3 - Chronic kidney disease, stage 3 (moderate) Procedures Nuclear stress test 12/30/2016 --> no evidence of stress-induced ischemia. Brief History - From Admission This is a 66-year-old male with a PMH of A. fib on Eliquis, s/p Ablation x3, HTN , Polymyalgia Rheumatica and h/o CAD who was brought to the ER by EMS secondary to episode of A-fib w/ RVR. Pt follows w/ Dr. Perera, underwent Ablation on 12/25. Today, states he was sitting watching the [employer] game when he had sudden onset of palpitations, states he took Cardizem 240mg x1 at that time w/ some improvement, few hours later had recurrent episode of palpitations and took Amiodarone 200mg x1 w/ minimal improvement. Upon EMS arrival, pt noted to be in A-fib w/ RVR, HR 150-160's, s/p Cardizem 20mg IV en route w/ minimal improvement. On arrival to ER, HR 130-140's, started on Cardizem gtt w/ HR 110- 120's. Dr. Richards consulted by ER physician, recommended change to Amiodarone gtt. BP currently 142/94, HR 117, O2 sat 96% on RA, Afebrile. CBC normal. K+ 3.2. GFR 58. Trop 0.21. CBC/BMP: 12/30/16 0644 12/30/16 0644 Significant Findings Laboratory Tests Test 12/29/16 18:40 12/30/16 00:11 12/30/16 06:44 Monocytes (%) (Auto) 8.6 % (0.0-8.0) 9.0 % (0.0-8.0) Random Glucose 112 MG/DL (74-106) Calcium Level 7.7 MG/DL (8.5-10.1) 8.3 MG/DL (8.5-10.1) Potassium Level 3.2 MEQ/L (3.5-5.1) Chloride Level 110 MEQ/L (98-107) 109 MEQ/L (98-107) Estimat Glomerular Filtration Rate 58 ML/MIN (>89) 59 ML/MIN (>89) Troponin I 0.21 NG/ML (0.02-0.05) 0.20 NG/ML (0.02-0.05) 0.18 NG/ML (0.02-0.05) Albumin 3.3 GM/DL (3.4-5.0) PE at Discharge GENERAL: Alert, Oriented x 3, NAD. SKIN: Warm and dry. HEAD: Normocephalic. EYES: No scleral icterus. No injection or drainage. NECK: Supple, trachea midline. No JVD or lymphadenopathy. CARDIOVASCULAR: Irregularly irregular without murmurs, gallops, or rubs. RESPIRATORY: Breath sounds equal bilaterally. No accessory muscle use. GASTROINTESTINAL: Abdomen soft, non-tender, nondistended. MUSCULOSKELETAL: No cyanosis, or edema. BACK: Nontender without obvious deformity. No CVA tenderness. Pt update on day of discharge Patient is doing well. No chest pain, SOB, fever, chills. Dr. Perera (EP) has cleared for discharge. Hospital Course This is a 66-year-old male with a PMH of A. fib on Eliquis, s/p Ablation x3, HTN , Polymyalgia Rheumatica and h/o CAD who was brought to the ER by EMS secondary to episode of A-fib w/ RVR. Pt follows w/ Dr. Perera, underwent Ablation on 12/25. Upon EMS arrival, pt noted to be in A-fib w/ RVR, HR 150-160's, s/p Cardizem 20mg IV en route w/ minimal improvement. On arrival to ER, HR 130-140' s, started on Cardizem gtt w/ HR 110-120's. Upon admission, CBC normal. K+ 3.2. GFR 58. Trop 0.21. - Atrial fibrillation, chronic - Refractory to previous ablations and cardioversions. - Patient is currently on Diltiazem 360mg Qday, Amiodarone drip. Internet Retailer added Amiodarone PO as well. - Discussed at length with patient, family. I do not see any obvious contraindication to beta blockers. - Metoprolol discontinued. - Dr. Perera evaluated patient and cleared for discharge. If Afib remains difficult to manage, he will consider Tikosyn in future. - Dose reduction of CCB and addition of Beta lakhwinder could also be tried in the outpatient setting. - Continue Apixaban 5mg BID for anti-coagulation. - NSTEMI - likely type 2 due to atrial fib with RVR. - Coronary artery disease - Troponins were 0.21, 0.20, 0.18. - No chest pain. Patient underwent nuclear stress test per cardiology today. - Nuclear stress test reveals no stress-induced ischemia. - Continue Apixaban. Continue statin on discharge. - CKD stage 3 - Hypokalemia - Creatinine 1.24 on 12/30/2016. In 08/2015, Creatinine was 1.35. - Hypokalemia is corrected with supplementation. K+ 3.2 --> 3.9. Mg 2.1 - Avoid nephrotoxins. - Hypertension - systolic BP in the 160s on admission. - Currently normotensive. Full code. Apixaban. Pt Condition on Discharge: Good Discharge Disposition: Discharge Home Discharge Time: > 30 minutes Discharge Instructions DIET: Follow Instructions for: Heart Healthy Diet Activities you can perform: Regular-No Restrictions Follow up Referrals: Cardiology - 1 Week with Pepe Perera MD PCP Follow-up - 1 Week New Medications: Diltiazem CD 24 HR (Cardizem CD 24 HR) 180 Mg Caper 360 MG PO DAILY for Atrial fibrillation for 90 Days, #180 CAP 3 Refills Continued Medications: Amiodarone (Amiodarone) 200 Mg Tab 200 MG PO DAILY for Regulate Heart Beat, #30 TAB 6 Refills Amitriptyline (Amitriptyline) 25 Mg Tab 25 MG PO HS for Control Depression, #30 TAB 0 Refills Apixaban (Eliquis) 5 Mg Tab 5 MG PO BID for Blood Clot Prevention, #60 TAB [address] (Diclofenac Sodium DR) 75 Mg Tabdr 75 MG PO BID, #60 TAB 0 Refills Methotrexate (Methotrexate) 2.5 Mg Tab 2.5 MG PO Q7D, TAB 0 Refills Rosuvastatin (Crestor) 10 Mg Tab 10 MG PO DAILY for Cholesterol Management, #30 TAB 0 Refills Tadalafil (Cialis) 5 Mg Tab 5 MG PO DAILY, TAB 0 Refills Do not exceed 1 dose/day. Zolpidem (Zolpidem) 10 Mg Tab 10 MG PO HS PRN for INSOMNIA, TAB 0 Refills Ariela Youngblood DO Dec 31, 2016 11:12
[2017-01-01] MEDS ORDERED: AMIODARONE 200 MG TAB PO SCH (09:00)
== END 2016-12-31 12:07 | disposition home or self-care (01) | DRG 282 ==
LOC: NEPC 18:23 → NEDA 19:49 → HCIS 21:49
PROVIDERS: ADMIT Hospitalist; ATTEND Hospitalist
DX: I21.4 Non-ST elevation (NSTEMI) myocardial infarction (principal); N18.3 Chronic kidney disease, stage 3 (moderate); I12.9 Hypertensive chronic kidney disease with stage 1 through stage 4 chronic kidney disease, or unspecified chronic kidney disease; E86.0 Dehydration; I25.10 Atherosclerotic heart disease of native coronary artery without angina pectoris; I48.0 Paroxysmal atrial fibrillation; I25.2 Old myocardial infarction; E87.6 Hypokalemia; Z79.01 Long term (current) use of anticoagulants; M35.3 Polymyalgia rheumatica
CPT/HCPCS: 71010; 78452; 80048; 80053; 82550; 83735; 84484; 85025; 85610; 85730; 93005; 93017; 96365; 96375; A9502; J0282; J2785; J7030; J7060